=== PATIENT | female | born 1945 | race Caucasian/White ===

== ENCOUNTER 2017-10-20 10:58 | Inpatient (IN) | payer MEDICAID, MEDICARE ==
[2017-10-20 11:56] LABS: Hematocrit 40.3 % (37.0-47.0); Mean Cell Volume 106.1 fl (78-100); Mean Corpuscular Hemoglobin 34.2 pg (27-31); Mean Corpuscular Hgb Conc 32.3 g/dl (32-36); Mean Platelet Volume 9.9 fl (8-12.5); Platelet Count 224 K/mm3 (150-450); Red Cell Distribution Width 12.7 % (11.5-14.0); White Blood Count 17.5 K/mm3 (4.0-10.5)
[2017-10-20 11:58] LABS: Total Cells Counted 100
[2017-10-20 12:07] LABS: Urine Bilirubin Negative (NEGATIVE); Urine Ketone Negative (NEGATIVE); Urine Nitrite Negative (NEGATIVE); Urine Protein 30 mg/dL (NEGATIVE); Urine Specific Gravity 1.025 SP.GR. (1.005-1.010)
[2017-10-20 12:15] LABS: Urine Blood 10 /ul (NEGATIVE)
[2017-10-20 12:21] LABS: Urine Appearance Cloudy (CLEAR); Urine Bacteria 2+; Urine Color Dark Yellow
[2017-10-20 12:25] LABS: Anion Gap 14.6 mmol/L (6.8-13.8); BUN/Creatinine Ratio 21.2 (9.0-21.6); Bilirubin, Total 0.5 mg/dL (0.0-1.1); Ca. Corrected For Albumin 10.5 mg/dL (8.4-10.2); Calcium * 9.9 mg/dL (7.9-10.9); Carbon Dioxide 24.5 mmol/L (24-32.6); Potassium 4.1 mmol/L (3.4-4.6); Total Protein 9.3 gm/dL (6.2-8.2)
[2017-10-20 12:40] LABS: Albumin * 3.1 gm/dl (3.4-5.0)
[2017-10-20 12:41] LABS: Band 1 % (0-2.0); Eosinophil 1 % (0-3); Immature Granulocyte 3 (0-1); Lymphocyte 38 % (20-51); Monocyte 5 % (0-9); Neutrophil 52 % (42-75); Neutrophil # 9.1 K/mm3 (1.3-6.0)
[2017-10-20 12:43] LABS: CRP 16.4 mg/dL (0.0-0.9)
[2017-10-20] MEDS ORDERED: PIPERACILLIN SODIUM/TAZOBACTAM 3.375 GM in DEXTROSE 5 % IN WATER 100 ML IV ONE ×2 (12:51)
[2017-10-20] MEDS ORDERED: NORMAL SALINE 1,000 ML IV ONE ×2 (13:36→14:50)
--- NOTE | 2017-10-20 14:26 | ERNOTE ---
Neuro HPI ER Record Date of Service: 10/20/17 Presenting Symptoms: confusion, other - alterred mental status Time Seen by Provider: 10/20/17 11:15 Source: EMS notes reviewed, group home records Exam Limitations: clinical condition, physical impairment, dementia Immunizations: IMMUNIZATION HX Immunizations Up to Date Yes History of Influenza Vaccine Yes Hx Pneumococcal Vaccination Yes Allergies/Adverse Reactions: Allergies Allergy/AdvReac Type Severity Reaction Status Date / Time azithromycin Allergy Intermediate Verified 01/08/16 12:34 baclofen Allergy Intermediate Verified 01/08/16 12:34 ciprofloxacin [From Cipro] Allergy Intermediate Verified 01/08/16 12:34 ciprofloxacin HCl Allergy Intermediate Verified 01/08/16 12:34 [From Cipro] clindamycin Allergy Intermediate Verified 01/08/16 12:34 phenobarbital Allergy Intermediate Verified 01/08/16 12:34 Sulfa (Sulfonamide Allergy Intermediate Verified 01/08/16 12:34 Antibiotics) [Sulfa(Sulfonamide Antibiotics)] tizanidine [Tizanidine] Allergy Intermediate Verified 01/08/16 12:34 verapamil [Verapamil] Allergy Intermediate Verified 01/08/16 12:34 cephalexin monohydrate Allergy Verified 01/08/16 12:34 [From Keflex] levofloxacin [From Levaquin] Allergy Verified 01/08/16 12:34 mesalamine [From Pentasa] Allergy Verified 01/08/16 12:34 Neuromuscular Blockers, Allergy Verified 01/08/16 12:34 Steroidal Home Medications: HOME MEDICATIONS Calcium Carbonate [Tums] 500 mg PO TID 09/13/14 [Last Taken 12/28/15] Cholecalciferol (Vitamin D3) [Vitamin D3] 5,000 unit PO DAILY 09/13/14 [Last Taken 12/27/15] Cyanocobalamin (Vitamin B-12) [B-12] 1,000 mcg PO DAILY 09/13/14 [Last Taken 12/03] Multivitamin [Multi-Vitamin Daily] 1 each PO DAILY 09/13/14 [Last Taken 12/27/15 ] Simvastatin [Zocor] 40 mg PO HS 09/13/14 [Last Taken 12/27/15] Thiamine HCl [B-1] 100 mg PO DAILY 09/13/14 [Last Taken 12/27/15] Polyethylene Glycol 3350 [Miralax] 17 gm PO DAILY btl 09/20/14 [Last Taken 12/03] Pantoprazole Sodium [Protonix] 40 mg PO DAILY 12/04/14 [Last Taken 12/27/15] Lisinopril [Zestril] 20 mg PO DAILY #30 tablet 05/17/15 [Last Taken 12/27/15] 0.9 % Sodium Chloride [Nasal Mist] 2 spray NS QID 08/17/15 [Last Taken 12/28/15] Cetirizine HCl [Wal-Zyr] 10 mg PO Q12H 08/17/15 [Last Taken 12/27/15] Furosemide [Lasix] 40 mg PO MOWEFR 08/17/15 [Last Taken 12/26/15] Propranolol HCl [Inderal] 20 mg PO Q8H 08/17/15 [Last Taken 12/27/15] Topiramate [Topamax] 100 mg PO BID 08/17/15 [Last Taken 12/27/15] Lancets [Fingerstix] 1 each [facility] #1 each 08/22/15 [Last Taken 12/28/15] Blood Sugar Diagnostic [Test Strips] 1 each [facility] 12/28/15 [Last Taken ] Cranberry Fruit Concentrate [Cranberry] 450 mg PO DAILY 12/28/15 [Last Taken 12/03] Cyclosporine [Restasis] 1 each EACHEYE BID 12/28/15 [Last Taken 12/27/15] Divalproex Sodium [Depakote] 1,500 mg PO HS 12/28/15 [Last Taken 12/27/15] Insulin Aspart [Novolog] See Protocol [facility] 12/28/15 [Last Taken 12/27/15] Levothyroxine Sodium [Synthroid] 300 mcg PO DAILY 12/28/15 [Last Taken 12/27/15] Magnesium Hydroxide [Milk Of Magnesia] 30 ml PO DAILY PRN 12/28/15 [Last Taken Unknown] Aspirin [Marcelo Chewable Aspirin] 81 mg PO DAILY 04/10/17 [Last Taken Unknown] Gabapentin 300 mg PO TID 04/10/17 [Last Taken Unknown] Fluticasone Propionate [Flonase] 2 spray NS BID PRN 04/14/17 [Last Taken Unknown ] traMADol HCL [Tramadol HCl] 50 mg PO Q8H PRN 04/14/17 [Last Taken Unknown] Acetaminophen 650 mg PO QID PRN 10/08/17 [Last Taken Unknown] Insulin Detemir [Levemir] 120 unit SQ BID 10/08/17 [Last Taken Unknown] Docusate Sodium [Stool Softener] 100 mg PO HS 10/20/17 [Last Taken Unknown] Lurasidone HCl [Latuda] 60 mg PO BID 10/20/17 [Last Taken Unknown] - History of Present Illness Narrative: nusing home patient with known hx of bipolar, urosepsis presents to ed with c/ o of alterred mental status Onset: cannot confirm onset Severity: moderate Context: other - no reported injury - Character of Deficits New weakness: Present: general (diffuse) Additional Deficits: Present: impaired speech, bed-ridden Baseline Cognition: Present: alert but disoriented to time Baseline Gait: Present: walks only w/ assistance Associated Symptoms: Reports: fever/chills, altered mental status, disoriented, confused Prior Treament: Reports: recently seen, treated by physician Review of Systems - Narrative Narrative: previous episodes of urosepsis - Review of Systems Constitutional: Present: See HPI, fever, weakness, fatigue, malaise EYE: Present: no symptoms reported ENT: Present: no symptoms reported Respiratory: Present: no symptoms reported Cardiology: Present: no symptoms reported Gastrointestinal/Abdominal: Present: no symptoms reported Genitourinary: Present: no symptoms reported Musculoskeletal: Present: no symptoms reported Skin: Present: no symptoms reported Neurological: Present: weakness Endocrine: Present: no symptoms reported Hematologic/Lymphatic: Present: no symptoms reported Psych: Present: no symptoms reported Medical History (Last Updated 10/20/17 @ 11:18 by Jose Rico RN) Bipolar 1 disorder COPD (chronic obstructive pulmonary disease) Chronic pain Crohns disease Diabetes mellitus Diabetic neuropathy Edema GERD (gastroesophageal reflux disease) Hyperlipidemia Hypertension Hypothyroidism Major depressive disorder Migraine Muscle weakness Palmar fascial fibromatosis [dupuytren] Unspecified dementia with behavioral disturbance Urinary tract infection Social History: Preferred Language Italian Smoking Status Never smoker Have you smoked in the past 12 No months Abuse History No History of abuse Psych History Hx of Bipolar Disorder,Currently on Meds Alcohol Use none Drug Use none Physical Exam - Physical Exam General Appearance: Present: lethargic Head Exam: Present: normal inspection, no evidence of injury Eye Exam: Normal inspection: bilateral, PERRL: bilateral, EOMI: bilateral Ears, Nose, Throat: Present: normal ENT inspection, normal pharynx Neck: Present: normal inspection, nontender Respiratory: Present: no respiratory distress, normal breath sounds, no accessory muscle use, chest nontender, lungs clear Cardiovascular/Chest: Present: regular rate, rhythm, no murmur, normal peripheral pulses Gastrointestinal/Abdominal: Present: normal bowel sounds, nontender, nondistended, soft, no organomegaly Back Exam: Present: normal inspection, normal range of motion, no CVA tenderness , no vertebral tenderness Extremity Exam: Present: normal inspection, non-tender, normal range of motion, no edema Neurological Exam: Present: alert, oriented, normal mood/affect, no motor/ sensory deficits Skin Exam: Present: normal color, warm/dry Lymphatic Exam: Present: no adenopathy Sydni Coma Scale - Assess Eye Opening: To Pain Motor: Localizes to Pain Verbal: Confused - Total Coma Scale Total: 11 ED Progress - Date and Time Seen: Date and Time: 10/20/17 14:25 condition unchanged - Results and Orders Patient's Lab Results:: I have reviewed the patient's lab results. - Vital Signs Patient's Vital Signs:: I have reviewed the patient's vital signs. Vital Signs: Vital Signs 10/20/17 11:00 10/20/17 11:06 10/20/17 11:35 Temperature 36 C 36 C Pulse Rate 85 85 79 Respiratory Rate 20 20 Blood Pressure 140/37 151/46 H O2 Sat by Pulse Oximetry 95 95 10/20/17 11:48 10/20/17 12:05 10/20/17 12:35 Temperature 36 C 36 C Pulse Rate 79 79 79 Respiratory Rate 20 20 Blood Pressure 162/53 H 164/52 H O2 Sat by Pulse Oximetry 95 95 10/20/17 13:05 10/20/17 13:35 10/20/17 14:05 Temperature 36 C 36 C Pulse Rate 79 79 79 Respiratory Rate 20 20 22 H Blood Pressure 164/52 H 166/50 H 156/56 H O2 Sat by Pulse Oximetry 95 95 95 - EKG EKG: NSR EKG read: Interp. by me - X-Ray X-Ray #1 X-Ray: chest - no acute process - Progress/Reassessment Chief Complaint: Altered Mental Status Progress:: Unchanged - Transfer of Care Expected Disposition: Admit Plan - Plan Plan: to be admitted Departure Clinical Impression: Urinary tract infection - Departure Disposition: Still a patient Condition: Serious
[2017-10-20] MEDS: NORMAL SALINE 1,000 ML IV PRN ×2 (15:57→23:53)
--- NOTE | 2017-10-20 17:07 | HP ---
Chief Complaint - Chief Complaint Date of Service: 10/20/17 Time of Service: 16:57 Chief Complaint: altered mental status History of Present Illness: Meka Vee, is a 72-year-old white female, patient of Dr. Noriega, resident of the [facility], with previous medical history of bipolar disorder, COPD, hypertension, hypothyroidism, dementia who was brought to the emergency room on 10/20/2017 because of altered mental status. Due to the patient's current altered mental status and history of dementia, I am not able to get any history from the patient. The history is based on the emergency room notes which basically says that he was transferred here for altered mental status and her work up showed she has elevated WBC, Lactic acid and UTI on her urinalysis. Her CTS of the head did not show any acute intracranial process and CXR showed no acute cardiopulmonary findings. She was then admitted for further treatment. Medical History (Last Reviewed 10/20/17 @ 16:02 by Crystal Salgado RN) Urinary tract infection Bipolar 1 disorder COPD (chronic obstructive pulmonary disease) Chronic pain Crohns disease Diabetes mellitus Diabetic neuropathy Edema GERD (gastroesophageal reflux disease) Hyperlipidemia Hypertension Hypothyroidism Major depressive disorder Migraine Muscle weakness Palmar fascial fibromatosis [dupuytren] Unspecified dementia with behavioral disturbance Family History: Family History (Last Updated 10/20/17 @ 16:04 by Crystal Salgado RN) Mother No pertinent family history Social History: Patient Lives/Resources [facility] Utilized Occupation retired Preferred Language Syriac Smoking Status Unknown if ever smoked Have you smoked in the past 12 No months Abuse History No History of abuse Psych History Hx of Bipolar Disorder,Currently on Meds Alcohol Use none Drug Use none Review Of Systems (GEN) - Review of Systems Misc: All systems neg except as marked - Her ROS is unreliable due to her mental status and dementia. She answers No to all my querries. Immunizations: IMMUNIZATION HX Immunizations Up to Date Yes History of Influenza Vaccine Yes Hx Pneumococcal Vaccination Yes Allergies/Adverse Reactions: Allergies Allergy/AdvReac Type Severity Reaction Status Date / Time azithromycin Allergy Intermediate Verified 10/20/17 16:05 baclofen Allergy Intermediate Verified 10/20/17 16:05 ciprofloxacin [From Cipro] Allergy Intermediate Verified 10/20/17 16:05 ciprofloxacin HCl Allergy Intermediate Verified 10/20/17 16:05 [From Cipro] clindamycin Allergy Intermediate Verified 10/20/17 16:05 phenobarbital Allergy Intermediate Verified 10/20/17 16:05 Sulfa (Sulfonamide Allergy Intermediate Verified 10/20/17 16:05 Antibiotics) [Sulfa(Sulfonamide Antibiotics)] tizanidine [Tizanidine] Allergy Intermediate Verified 10/20/17 16:05 verapamil [Verapamil] Allergy Intermediate Verified 10/20/17 16:05 cephalexin monohydrate Allergy Verified 10/20/17 16:05 [From Keflex] levofloxacin [From Levaquin] Allergy Verified 10/20/17 16:05 mesalamine [From Pentasa] Allergy Verified 10/20/17 16:05 Neuromuscular Blockers, Allergy Verified 10/20/17 16:05 Steroidal Home Medications: HOME MEDICATIONS Calcium Carbonate [Tums] 500 mg PO TID 09/13/14 [Last Taken 12/28/15] Cholecalciferol (Vitamin D3) [Vitamin D3] 5,000 unit PO DAILY 09/13/14 [Last Taken 12/27/15] Cyanocobalamin (Vitamin B-12) [B-12] 1,000 mcg PO DAILY 09/13/14 [Last Taken 12/03] Multivitamin [Multi-Vitamin Daily] 1 each PO DAILY 09/13/14 [Last Taken 12/27/15 ] Simvastatin [Zocor] 40 mg PO HS 09/13/14 [Last Taken 12/27/15] Thiamine HCl [B-1] 100 mg PO DAILY 09/13/14 [Last Taken 12/27/15] Polyethylene Glycol 3350 [Miralax] 17 gm PO DAILY btl 09/20/14 [Last Taken 12/03] Pantoprazole Sodium [Protonix] 40 mg PO DAILY 12/04/14 [Last Taken 12/27/15] Lisinopril [Zestril] 20 mg PO DAILY #30 tablet 05/17/15 [Last Taken 12/27/15] 0.9 % Sodium Chloride [Nasal Mist] 2 spray NS QID 08/17/15 [Last Taken 12/28/15] Cetirizine HCl [Wal-Zyr] 10 mg PO Q12H 08/17/15 [Last Taken 12/27/15] Furosemide [Lasix] 40 mg PO MOWEFR 08/17/15 [Last Taken 12/26/15] Propranolol HCl [Inderal] 20 mg PO Q8H 08/17/15 [Last Taken 12/27/15] Topiramate [Topamax] 100 mg PO BID 08/17/15 [Last Taken 12/27/15] Lancets [Fingerstix] 1 each [facility] #1 each 08/22/15 [Last Taken 12/28/15] Blood Sugar Diagnostic [Test Strips] 1 each [facility] 12/28/15 [Last Taken ] Cranberry Fruit Concentrate [Cranberry] 450 mg PO DAILY 12/28/15 [Last Taken 12/03] Cyclosporine [Restasis] 1 each EACHEYE BID 12/28/15 [Last Taken 12/27/15] Divalproex Sodium [Depakote] 1,500 mg PO HS 12/28/15 [Last Taken 12/27/15] Insulin Aspart [Novolog] See Protocol [facility] 12/28/15 [Last Taken 12/27/15] Levothyroxine Sodium [Synthroid] 300 mcg PO DAILY 12/28/15 [Last Taken 12/27/15] Magnesium Hydroxide [Milk Of Magnesia] 30 ml PO DAILY PRN 12/28/15 [Last Taken Unknown] Aspirin [Marcelo Chewable Aspirin] 81 mg PO DAILY 04/10/17 [Last Taken Unknown] Gabapentin 300 mg PO TID 04/10/17 [Last Taken Unknown] Fluticasone Propionate [Flonase] 2 spray NS BID PRN 04/14/17 [Last Taken Unknown ] traMADol HCL [Tramadol HCl] 50 mg PO Q8H PRN 04/14/17 [Last Taken Unknown] Acetaminophen 650 mg PO QID PRN 10/08/17 [Last Taken Unknown] Insulin Detemir [Levemir] 120 unit SQ BID 10/08/17 [Last Taken Unknown] Diclofenac Sodium [Voltaren] 100 gm TP TID 10/20/17 [Last Taken Unknown] Docusate Sodium [Stool Softener] 100 mg PO HS 10/20/17 [Last Taken Unknown] Glycerin/[place] [Tucks Medicated Pads] 1 appl TP TID PRN 10/20/17 [ Last Taken Unknown] Lurasidone HCl [Latuda] 60 mg PO BID 10/20/17 [Last Taken Unknown] Nystatin [Mycostatin Powder] 15 gm TP TID PRN 10/20/17 [Last Taken Unknown] Exam - Exam Vital Signs: Vital Signs - Last Taken Temp 36.6 C 10/20/17 16:24 Pulse 66 10/20/17 16:24 Resp 20 10/20/17 16:24 BP 121/51 10/20/17 16:24 Pulse Ox 94 10/20/17 16:24 Constitutional: Present: Alert - AAo x 1, Lethargic, Morbidly obese ENT Exam: Present: hearing grossly normal Eye Exam: bilateral eye: normal inspection, PERRL, EOMI Neck: Present: supple Respiratory: Present: decreased breath sounds, No rales, No wheezing Cardiovascular/Chest: Present: regular rate, rhythm, no JVD, no murmur Abdomen: Present: Normal bowel sounds, soft, nontender, nondistended Extremity: Present: no calf tenderness, pedal edema Diagnostic Studies: Abnormal Lab Results 10/20/17 10/20/17 10/20/17 Range/Units 11:21 11:45 11:45 WBC 17.5 H D (4.0-10.5) K/mm3 RBC 3.80 L (4.2-5.4) M/mm3 MCV 106.1 H (78-100) fl MCH 34.2 H (27-31) pg Immature Granulocytes 3 H (0-1) Neutrophils # (Manual) 9.1 H (1.3-6.0) K/mm3 Lymphocytes # (Manual) 6.7 H (1.5-3.5) k/mm3 pO2 (83.0-108.0) mmHg Base Excess (-2.0-3.0) mmol/L Anion Gap 14.6 H (6.8-13.8) mmol/L BUN 31 H (3-23) mg/dL Creatinine 1.46 H (0.4-1.4) mg/dL Est GFR (Non-Af Amer) 38 L (60-130) mL/min Random Glucose 149 H D (70-110) mg/dL Lactic Acid, Venous (0.4-2.0) mmol/L Calcium Adj for Albumin 10.5 H (8.4-10.2) mg/dL C-Reactive Prot, Quant 16.4 H (0.0-0.9) mg/dL Total Protein 9.3 H (6.2-8.2) gm/dL Albumin 3.1 L (3.4-5.0) gm/dl Urine Protein 30 H (NEGATIVE) mg/dL Urine Blood 10 H (NEGATIVE) /ul Urine Urobilinogen 2.0 H (NORMAL) EU/dl Ur Leukocyte Esterase 75 H (NEGATIVE) /ul Urine RBC 5-10 H (0-5) /hpf Urine WBC 10-25 H (0-5) /hpf Urine Bacteria 2+ H (NONE) 10/20/17 10/20/17 10/20/17 Range/Units 11:45 12:35 14:36 WBC (4.0-10.5) K/mm3 RBC (4.2-5.4) M/mm3 MCV (78-100) fl MCH (27-31) pg Immature Granulocytes (0-1) Neutrophils # (Manual) (1.3-6.0) K/mm3 Lymphocytes # (Manual) (1.5-3.5) k/mm3 pO2 69.7 L (83.0-108.0) mmHg Base Excess -2.9 L (-2.0-3.0) mmol/L Anion Gap (6.8-13.8) mmol/L BUN (3-23) mg/dL Creatinine (0.4-1.4) mg/dL Est GFR (Non-Af Amer) (60-130) mL/min Random Glucose (70-110) mg/dL Lactic Acid, Venous 2.8 H* 3.4 H* (0.4-2.0) mmol/L Calcium Adj for Albumin (8.4-10.2) mg/dL C-Reactive Prot, Quant (0.0-0.9) mg/dL Total Protein (6.2-8.2) gm/dL Albumin (3.4-5.0) gm/dl Urine Protein (NEGATIVE) mg/dL Urine Blood (NEGATIVE) /ul Urine Urobilinogen (NORMAL) EU/dl Ur Leukocyte Esterase (NEGATIVE) /ul Urine RBC (0-5) /hpf Urine WBC (0-5) /hpf Urine Bacteria (NONE) Laboratory Results WBC 17.5 K/mm3 (4.0-10.5) H D 10/20/17 11:45 RBC 3.80 M/mm3 (4.2-5.4) L 10/20/17 11:45 Hgb 13.0 gm/dL (12.5-16.0) 10/20/17 11:45 Hct 40.3 % (37.0-47.0) 10/20/17 11:45 MCV 106.1 fl (78-100) H 10/20/17 11:45 MCH 34.2 pg (27-31) H 10/20/17 11:45 MCHC 32.3 g/dl (32-36) 10/20/17 11:45 RDW 12.7 % (11.5-14.0) 10/20/17 11:45 Plt Count 224 K/mm3 (150-450) 10/20/17 11:45 MPV 9.9 fl (8-12.5) 10/20/17 11:45 Neutrophils % (Manual) 52 % (42-75) 10/20/17 11:45 Band Neuts % (Manual) 1 % (0-2.0) 10/20/17 11:45 Lymphocytes % (Manual) 38 % (20-51) 10/20/17 11:45 Monocytes % (Manual) 5 % (0-9) 10/20/17 11:45 Eosinophils % (Manual) 1 % (0-3) 10/20/17 11:45 Immature Granulocytes 3 (0-1) H 10/20/17 11:45 Neutrophils # (Manual) 9.1 K/mm3 (1.3-6.0) H 10/20/17 11:45 Lymphocytes # (Manual) 6.7 k/mm3 (1.5-3.5) H 10/20/17 11:45 Monocytes # (Manual) 0.9 k/mm3 (0.0-1.0) 10/20/17 11:45 Eosinophils # (Manual) 0.2 k/mm3 (0.0-0.7) 10/20/17 11:45 pCO2 34.7 mmHg (32.0-45.0) 10/20/17 12:35 pO2 69.7 mmHg (83.0-108.0) L 10/20/17 12:35 HCO3 21.2 mmol/L (21.0-28.0) 10/20/17 12:35 Total CO2 22.3 mmol/L (19.0-24.0) 10/20/17 12:35 Base Excess -2.9 mmol/L (-2.0-3.0) L 10/20/17 12:35 ABG pH 7.40 (7.35-7.45) 10/20/17 12:35 ABG O2 Sat (Measured) 94.2 % (94.0-98.0) 10/20/17 12:35 Sodium 135 mmol/L (132-142) 10/20/17 11:45 Plasma Sodium 136 mmol/L (130-142) 10/20/17 11:45 Potassium 4.1 mmol/L (3.4-4.6) 10/20/17 11:45 Chloride 100 mmol/L (97-106) 10/20/17 11:45 Carbon Dioxide 24.5 mmol/L (24-32.6) 10/20/17 11:45 Anion Gap 14.6 mmol/L (6.8-13.8) H 10/20/17 11:45 BUN 31 mg/dL (3-23) H 10/20/17 11:45 Creatinine 1.46 mg/dL (0.4-1.4) H 10/20/17 11:45 Est GFR (Non-Af Amer) 38 mL/min (60-130) L 10/20/17 11:45 BUN/Creatinine Ratio 21.2 (9.0-21.6) 10/20/17 11:45 Random Glucose 149 mg/dL (70-110) H D 10/20/17 11:45 Lactic Acid, Venous 3.4 mmol/L (0.4-2.0) H* 10/20/17 14:36 Calcium 9.9 mg/dL (7.9-10.9) 10/20/17 11:45 Calcium Adj for Albumin 10.5 mg/dL (8.4-10.2) H 10/20/17 11:45 Total Bilirubin 0.5 mg/dL (0.0-1.1) 10/20/17 11:45 AST 38 U/L (0-48) 10/20/17 11:45 ALT 35 U/L (19-67) 10/20/17 11:45 Alkaline Phosphatase 138 U/L (50-170) 10/20/17 11:45 C-Reactive Prot, Quant 16.4 mg/dL (0.0-0.9) H 10/20/17 11:45 Total Protein 9.3 gm/dL (6.2-8.2) H 10/20/17 11:45 Albumin 3.1 gm/dl (3.4-5.0) L 10/20/17 11:45 Procalcitonin 0.10 ng/mL (0.05-0.50) 10/20/17 11:45 Urine Color Dark yellow 10/20/17 11:21 Urine Appearance Cloudy (CLEAR) 10/20/17 11:21 Urine pH 6.0 pH (5.0-7.0) 10/20/17 11:21 Ur Specific [place] 1.025 SP.GR. (1.005-1.010) 10/20/17 11:21 Urine Protein 30 mg/dL (NEGATIVE) H 10/20/17 11:21 Urine Glucose (UA) Negative mg/dL (NEGATIVE) 10/20/17 11:21 Urine Ketones Negative mg/dL (NEGATIVE) 10/20/17 11:21 Urine Blood 10 /ul (NEGATIVE) H 10/20/17 11:21 Urine Nitrate Negative (NEGATIVE) 10/20/17 11:21 Urine Bilirubin Negative mg/dl (NEGATIVE) 10/20/17 11:21 Prot Sulfosalicylic Acd 1+ mg/dL (0) 10/20/17 11:21 Urine Urobilinogen 2.0 EU/dl (NORMAL) H 10/20/17 11:21 Ur Leukocyte Esterase 75 /ul (NEGATIVE) H 10/20/17 11:21 Urine RBC 5-10 /hpf (0-5) H 10/20/17 11:21 Urine WBC 10-25 /hpf (0-5) H 10/20/17 11:21 Ur Epithelial Cells 0-5 /hpf (0-5) 10/20/17 11:21 Urine Bacteria 2+ (NONE) H 10/20/17 11:21 Urine Culture Comments Culture to follow 10/20/17 11:21 Assessment/Plan - Assessment/Plan (1) Altered mental status Assessment: due to sepsis. Problem: Acute (2) Leucocytosis Assessment: due to UTI. Continue with IV antibiotics Problem: Acute Qualifiers: Leukocytosis type: unspecified Qualified Code(s): D72.829 - Elevated white blood cell count, unspecified (3) Lactic acidosis Assessment: likely due to sepsis. will continue with IVF and IV antibiotics Problem: Acute (4) Urinary tract infection Assessment: will continue with IV antibiotics and await C & S. 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
[2017-10-20] MEDS: PIPERACILLIN SODIUM/TAZOBACTAM 3.375 GM in DEXTROSE 5 % IN WATER 100 ML IV SCH ×2 (19:46)
[2017-10-20] MEDS ORDERED: DEXTROSE 50%-WATER 50 ML SYRG IV ONE (20:48)
[2017-10-20] MEDS ORDERED: FLUTICASONE PROPIONATE 120 SPRAY INHALER NS PRN (22:10)
[2017-10-20] MEDS: PROPRANOLOL HCL 20 MG TABLET PO SCH (23:06)
[2017-10-20] MEDS: traMADol HCL 50 MG TABLET PO PRN (23:08)
[2017-10-21] MEDS: ACETAMINOPHEN 325 MG TABLET PO PRN ×2 (01:24→10:29)
[2017-10-21] MEDS: PIPERACILLIN SODIUM/TAZOBACTAM 3.375 GM in DEXTROSE 5 % IN WATER 100 ML IV SCH ×6 (03:38→19:40)
[2017-10-21 04:33] LABS: Hematocrit 32.4 % (37.0-47.0); Hemoglobin 10.5 gm/dL (12.5-16.0); Mean Cell Volume 104.2 fl (78-100); Mean Corpuscular Hemoglobin 33.8 pg (27-31); Mean Corpuscular Hgb Conc 32.4 g/dl (32-36); Mean Platelet Volume 9.6 fl (8-12.5); Platelet Count 162 K/mm3 (150-450); Red Blood Count 3.11 M/mm3 (4.2-5.4); Red Cell Distribution Width 12.6 % (11.5-14.0); White Blood Count 10.7 K/mm3 (4.0-10.5)
[2017-10-21 04:37] LABS: Total Cells Counted 100
[2017-10-21 04:53] LABS: Band 2 % (0-2.0); Eosinophil 2 % (0-3); Immature Granulocyte 1 (0-1); Lymphocyte 36 % (20-51); Monocyte 8 % (0-9); Neutrophil 51 % (42-75); Neutrophil # 5.5 K/mm3 (1.3-6.0); Platelet Estimate Normal (NORMAL); RBC Morphology Normal (NORMAL)
[2017-10-21 04:54] LABS: Anion Gap 12.9 mmol/L (6.8-13.8); Bilirubin, Total 0.4 mg/dL (0.0-1.1); Ca. Corrected For Albumin 9.7 mg/dL (8.4-10.2); Calcium * 8.4 mg/dL (7.9-10.9); Carbon Dioxide 23.9 mmol/L (24-32.6); Potassium 3.8 mmol/L (3.4-4.6); Total Protein 6.8 gm/dL (6.2-8.2)
--- NOTE | 2017-10-21 04:55 | PN ---
Subjective - Date and Time Seen Date: 10/21/17 Time: 04:49 Subjective Narrative: patient seen this morning stated she was feeling much better. She is coherent to time place and self. pt stated she think she was admitted for pneumonia and would like to speak with her daughter in [place].She denies fever, chills,nausea or dysuria. Objective - Review of Systems Generalized/Overall Review: Reports: Weakness EENTM: Reports: No Symptoms Reported Respiratory: Reports: Cough Cardiac: Reports: No Symptoms Reported Abdominal: Reports: No Symptoms Reported Genitourinary Symptoms: Reports: No Symptoms Reported Musculoskeletal Complaints: Reports: No Symptoms Reported Neurological: Reports: No Symptoms Reported Skin: Reports: Dryness Endocrine: Reports: No Symptoms Reported - Vitals Vitals: Last Vital Signs Temp 36.9 C 10/20/17 23:15 Pulse 76 10/21/17 02:00 Resp 22 H 10/20/17 23:15 BP 123/51 10/21/17 00:06 Pulse Ox 90 L 10/21/17 00:06 - Abnormal Lab Findings Abnormal Lab Findings: Abnormal Lab Results 10/20/17 10/20/17 10/20/17 Range/Units 11:21 11:45 11:45 WBC 17.5 H D (4.0-10.5) K/mm3 RBC 3.80 L (4.2-5.4) M/mm3 Hgb (12.5-16.0) gm/dL Hct (37.0-47.0) % MCV 106.1 H (78-100) fl MCH 34.2 H (27-31) pg Immature Granulocytes 3 H (0-1) Neutrophils # (Manual) 9.1 H (1.3-6.0) K/mm3 Lymphocytes # (Manual) 6.7 H (1.5-3.5) k/mm3 pO2 (83.0-108.0) mmHg Base Excess (-2.0-3.0) mmol/L Anion Gap 14.6 H (6.8-13.8) mmol/L BUN 31 H (3-23) mg/dL Creatinine 1.46 H (0.4-1.4) mg/dL Est GFR (Non-Af Amer) 38 L (60-130) mL/min Random Glucose 149 H D (70-110) mg/dL Lactic Acid, Venous (0.4-2.0) mmol/L Calcium Adj for Albumin 10.5 H (8.4-10.2) mg/dL C-Reactive Prot, Quant 16.4 H (0.0-0.9) mg/dL Total Protein 9.3 H (6.2-8.2) gm/dL Albumin 3.1 L (3.4-5.0) gm/dl Urine Protein 30 H (NEGATIVE) mg/dL Urine Blood 10 H (NEGATIVE) /ul Urine Urobilinogen 2.0 H (NORMAL) EU/dl Ur Leukocyte Esterase 75 H (NEGATIVE) /ul Urine RBC 5-10 H (0-5) /hpf Urine WBC 10-25 H (0-5) /hpf Urine Bacteria 2+ H (NONE) 10/20/17 10/20/17 10/20/17 Range/Units 11:45 12:35 14:36 WBC (4.0-10.5) K/mm3 RBC (4.2-5.4) M/mm3 Hgb (12.5-16.0) gm/dL Hct (37.0-47.0) % MCV (78-100) fl MCH (27-31) pg Immature Granulocytes (0-1) Neutrophils # (Manual) (1.3-6.0) K/mm3 Lymphocytes # (Manual) (1.5-3.5) k/mm3 pO2 69.7 L (83.0-108.0) mmHg Base Excess -2.9 L (-2.0-3.0) mmol/L Anion Gap (6.8-13.8) mmol/L BUN (3-23) mg/dL Creatinine (0.4-1.4) mg/dL Est GFR (Non-Af Amer) (60-130) mL/min Random Glucose (70-110) mg/dL Lactic Acid, Venous 2.8 H* 3.4 H* (0.4-2.0) mmol/L Calcium Adj for Albumin (8.4-10.2) mg/dL C-Reactive Prot, Quant (0.0-0.9) mg/dL Total Protein (6.2-8.2) gm/dL Albumin (3.4-5.0) gm/dl Urine Protein (NEGATIVE) mg/dL Urine Blood (NEGATIVE) /ul Urine Urobilinogen (NORMAL) EU/dl Ur Leukocyte Esterase (NEGATIVE) /ul Urine RBC (0-5) /hpf Urine WBC (0-5) /hpf Urine Bacteria (NONE) 10/21/17 Range/Units 04:15 WBC 10.7 H D (4.0-10.5) K/mm3 RBC 3.11 L (4.2-5.4) M/mm3 Hgb 10.5 L (12.5-16.0) gm/dL Hct 32.4 L (37.0-47.0) % MCV 104.2 H (78-100) fl MCH 33.8 H (27-31) pg Immature Granulocytes (0-1) Neutrophils # (Manual) (1.3-6.0) K/mm3 Lymphocytes # (Manual) (1.5-3.5) k/mm3 pO2 (83.0-108.0) mmHg Base Excess (-2.0-3.0) mmol/L Anion Gap (6.8-13.8) mmol/L BUN (3-23) mg/dL Creatinine (0.4-1.4) mg/dL Est GFR (Non-Af Amer) (60-130) mL/min Random Glucose (70-110) mg/dL Lactic Acid, Venous (0.4-2.0) mmol/L Calcium Adj for Albumin (8.4-10.2) mg/dL C-Reactive Prot, Quant (0.0-0.9) mg/dL Total Protein (6.2-8.2) gm/dL Albumin (3.4-5.0) gm/dl Urine Protein (NEGATIVE) mg/dL Urine Blood (NEGATIVE) /ul Urine Urobilinogen (NORMAL) EU/dl Ur Leukocyte Esterase (NEGATIVE) /ul Urine RBC (0-5) /hpf Urine WBC (0-5) /hpf Urine Bacteria (NONE) - Exam Constitutional: Present: No distress, Elderly, Morbidly obese, Looks Older than stated age ENT Exam: Present: hearing grossly normal, moist mucous membranes Neck: Present: full range of motion Breasts: Present: Exam deferred Respiratory: Present: chest non-tender, no respiratory distress, no accessory muscle use, decreased breath sounds Cardiovascular/Chest: Present: normal peripheral pulses, no gallop, no JVD, no murmur Abdomen: Present: Normal bowel sounds, soft, nontender, nondistended, no rebound tenderness /Rectal: Present: Exam deferred Extremity: Present: no calf tenderness, normal capillary refill Neurologic: Present: alert, normal mood/affect, motor weakness, sensory deficit Appearance: Present: impaired insight, impaired recent memory, impaired remote memory Eye contact: Present: cooperative, good eye contact, refused to answer Assessment/Plan Plan Narrative: urosepsis Pt is more coherent today and tolerating IVF and antibiotic well. Her WBC 10.7 trending down since adm, Bun/Cre 25/1.25 gradually improved with IVF, will continue to monitor. Slightly anemia likely due to hemodilution, hemo-dynamically stable- will continue to monitor. Hypoglycemia: overnight Blood glucose was 78 she was symptomatic. Had dextrose and food. Blood glucose gradually improved and pt wake up She was on Levemir 120units BID while at home, dose was held over night, will continue with sliding scale. - Problems/Diagnosis (1) Chronic pain Problem: Chronic Qualifiers: Chronic pain type: chronic pain syndrome Qualified Code(s): G89.4 - Chronic pain syndrome (2) Sepsis Problem: Acute Qualifiers: Sepsis type: sepsis due to unspecified organism Qualified Code(s): A41.9 - Sepsis, unspecified organism (3) Morbid obesity Problem: Chronic (4) Crohns disease Problem: Chronic Qualifiers: Gastrointestinal tract location: unspecified location Digestive disease complication type: without complication Qualified Code(s): K50.90 - Crohn's disease, unspecified, without complications (5) Dementia Problem: Chronic Qualifiers: Dementia type: Alzheimer's disease (6) COPD (chronic obstructive pulmonary disease) Problem: Chronic (7) DVT (deep venous thrombosis) Problem: Chronic Qualifiers: DVT location: lower extremity (8) Type 2 diabetes mellitus Problem: Chronic Qualifiers: Diabetes mellitus halfway insulin use: with halfway use Chronic kidney disease stage: stage 3 (moderate) (9) Weakness Problem: Chronic (10) Hypertension Problem: Chronic Qualifiers: Hypertension type: essential hypertension Qualified Code(s): I10 - Essential (primary) hypertension (11) Dry eye syndrome Problem: Chronic (12) Leucocytosis Problem: Acute Qualifiers: Leukocytosis type: unspecified Qualified Code(s): D72.829 - Elevated white blood cell count, unspecified (13) Lactic acidosis Problem: Acute (14) Altered mental status Problem: Acute (15) Hypoglycemia Problem: Acute
[2017-10-21] MEDS: PROPRANOLOL HCL 20 MG TABLET PO SCH ×3 (07:11→22:06)
[2017-10-21] MEDS: traMADol HCL 50 MG TABLET PO PRN (07:12)
[2017-10-21] MEDS: LEVOTHYROXINE SODIUM 100 MCG TABLET PO SCH (07:12)
[2017-10-21] MEDS: NORMAL SALINE 1,000 ML IV PRN ×2 (07:15→15:11)
[2017-10-21] MEDS: PANTOPRAZOLE SODIUM 40 MG TABLET.EC PO SCH (07:22)
[2017-10-21] MEDS ORDERED: FUROSEMIDE 40 MG TABLET PO SCH (09:00)
[2017-10-21] MEDS: ENOXAPARIN SODIUM 40 MG/0.4 ML SYRG SC SCH (09:19)
[2017-10-21] MEDS: ASPIRIN 81 MG TAB.CHEW PO SCH (09:20)
[2017-10-21] MEDS: LORATADINE 10 MG TABLET PO SCH ×2 (09:21→21:56)
[2017-10-21] MEDS: DICLOFENAC SODIUM 100 APPL TUBE TP SCH ×3 (09:21→16:01)
[2017-10-21] MEDS: Cyclosporine [Restasis] EACHEYE SCH ×2 (09:21→21:50)
[2017-10-21] MEDS: LURASIDONE HCL 80 MG TABLET PO SCH ×2 (09:22→22:05)
[2017-10-21] MEDS: SODIUM CHLORIDE 45 SPRAY BTL NS SCH ×4 (09:23→21:52)
[2017-10-21] MEDS: GABAPENTIN 300 MG CAPSULE PO SCH ×3 (09:23→16:02)
[2017-10-21] MEDS: MULTIVITAMINS 1 CAP CAPSULE PO SCH (09:23)
[2017-10-21] MEDS: TOPIRAMATE 50 MG TABLET PO SCH ×2 (09:23→22:06)
[2017-10-21] MEDS: THIAMINE HCL 100 MG TABLET PO SCH (09:24)
[2017-10-21] MEDS: LISINOPRIL 20 MG TABLET PO SCH (09:24)
[2017-10-21] MEDS: CHOLECALCIFEROL 5,000 UNIT TABLET PO SCH (09:24)
[2017-10-21] MEDS: NYSTATIN 15 APPL BTL TP PRN (16:01)
[2017-10-21] MEDS ORDERED: DOCUSATE SODIUM 100 MG CAPSULE PO SCH (21:00)
[2017-10-21] MEDS ORDERED: SIMVASTATIN 40 MG TABLET PO SCH (21:00)
[2017-10-21] MEDS ORDERED: DIVALPROEX SODIUM 500 MG TABLET.DR PO SCH (21:00)
[2017-10-21] MEDS ORDERED: DIVALPROEX SODIUM 500 MG TAB.SR.24H PO SCH (21:00)
[2017-10-22] MEDS: PIPERACILLIN SODIUM/TAZOBACTAM 3.375 GM in DEXTROSE 5 % IN WATER 100 ML IV SCH ×2 (03:42)
[2017-10-22] MEDS: NORMAL SALINE 1,000 ML IV PRN (04:28)
[2017-10-22] MEDS: PANTOPRAZOLE SODIUM 40 MG TABLET.EC PO SCH (07:22)
[2017-10-22] MEDS: LEVOTHYROXINE SODIUM 100 MCG TABLET PO SCH (07:22)
[2017-10-22] MEDS: PROPRANOLOL HCL 20 MG TABLET PO SCH (07:23)
[2017-10-22] MEDS: ASPIRIN 81 MG TAB.CHEW PO SCH (10:00)
[2017-10-22] MEDS: ENOXAPARIN SODIUM 40 MG/0.4 ML SYRG SC SCH (10:00)
[2017-10-22] MEDS: CHOLECALCIFEROL 5,000 UNIT TABLET PO SCH (10:01)
[2017-10-22] MEDS: LORATADINE 10 MG TABLET PO SCH (10:01)
[2017-10-22] MEDS: TOPIRAMATE 50 MG TABLET PO SCH (10:01)
[2017-10-22] MEDS: MULTIVITAMINS 1 CAP CAPSULE PO SCH (10:01)
[2017-10-22] MEDS: GABAPENTIN 300 MG CAPSULE PO SCH (10:02)
[2017-10-22] MEDS: Cyclosporine [Restasis] EACHEYE SCH (10:02)
[2017-10-22] MEDS: LURASIDONE HCL 80 MG TABLET PO SCH (10:02)
[2017-10-22] MEDS: NYSTATIN 15 APPL BTL TP PRN (10:03)
[2017-10-22] MEDS: DICLOFENAC SODIUM 100 APPL TUBE TP SCH (10:04)
[2017-10-22] MEDS: SODIUM CHLORIDE 45 SPRAY BTL NS SCH (10:04)
[2017-10-22] MEDS: THIAMINE HCL 100 MG TABLET PO SCH (10:12)
[2017-10-22] MEDS: LISINOPRIL 20 MG TABLET PO SCH (10:12)
--- NOTE | 2017-10-22 11:17 | DS ---
<Ramy Burris - Last Filed: 10/31/17 20:27> Description of Stay: ct head no acute process Results and Findings: Lab Pending Results 10/20/17 10/20/17 10/20/17 11:21 11:45 11:45 WBC 17.5 H D RBC 3.80 L Hgb 13.0 Hct 40.3 MCV 106.1 H MCH 34.2 H MCHC 32.3 RDW 12.7 Plt Count 224 MPV 9.9 Neutrophils % (Manual) 52 Band Neuts % (Manual) 1 Lymphocytes % (Manual) 38 Monocytes % (Manual) 5 Eosinophils % (Manual) 1 Immature Granulocytes 3 H Neutrophils # (Manual) 9.1 H Lymphocytes # (Manual) 6.7 H Monocytes # (Manual) 0.9 Eosinophils # (Manual) 0.2 Platelet Estimate RBC Morphology pCO2 pO2 HCO3 Total CO2 Base Excess ABG pH ABG O2 Sat (Measured) Sodium 135 Plasma Sodium 136 Potassium 4.1 Chloride 100 Carbon Dioxide 24.5 Anion Gap 14.6 H BUN 31 H Creatinine 1.46 H Est GFR (Non-Af Amer) 38 L BUN/Creatinine Ratio 21.2 Random Glucose 149 H D Lactic Acid, Venous Calcium 9.9 Calcium Adj for Albumin 10.5 H Total Bilirubin 0.5 AST 38 ALT 35 Alkaline Phosphatase 138 C-Reactive Prot, Quant 16.4 H Total Protein 9.3 H Albumin 3.1 L Procalcitonin Urine Color Dark yellow Urine Appearance Cloudy Urine pH 6.0 Ur Specific Oolitic 1.025 Urine Protein 30 H Urine Glucose (UA) Negative Urine Ketones Negative Urine Blood 10 H Urine Nitrate Negative Urine Bilirubin Negative Prot Sulfosalicylic Acd 1+ Urine Urobilinogen 2.0 H Ur Leukocyte Esterase 75 H Urine RBC 5-10 H Urine WBC 10-25 H Ur Epithelial Cells 0-5 Urine Bacteria 2+ H Urine Culture Comments Culture to follow 10/20/17 10/20/17 10/20/17 11:45 11:45 12:35 WBC RBC Hgb Hct MCV MCH MCHC RDW Plt Count MPV Neutrophils % (Manual) Band Neuts % (Manual) Lymphocytes % (Manual) Monocytes % (Manual) Eosinophils % (Manual) Immature Granulocytes Neutrophils # (Manual) Lymphocytes # (Manual) Monocytes # (Manual) Eosinophils # (Manual) Platelet Estimate RBC Morphology pCO2 34.7 pO2 69.7 L HCO3 21.2 Total CO2 22.3 Base Excess -2.9 L ABG pH 7.40 ABG O2 Sat (Measured) 94.2 Sodium Plasma Sodium Potassium Chloride Carbon Dioxide Anion Gap BUN Creatinine Est GFR (Non-Af Amer) BUN/Creatinine Ratio Random Glucose Lactic Acid, Venous 2.8 H* Calcium Calcium Adj for Albumin Total Bilirubin AST ALT Alkaline Phosphatase C-Reactive Prot, Quant Total Protein Albumin Procalcitonin 0.10 Urine Color Urine Appearance Urine pH Ur Specific Oolitic Urine Protein Urine Glucose (UA) Urine Ketones Urine Blood Urine Nitrate Urine Bilirubin Prot Sulfosalicylic Acd Urine Urobilinogen Ur Leukocyte Esterase Urine RBC Urine WBC Ur Epithelial Cells Urine Bacteria Urine Culture Comments 10/20/17 10/21/17 10/21/17 14:36 04:15 04:15 WBC 10.7 H D RBC 3.11 L Hgb 10.5 L Hct 32.4 L MCV 104.2 H MCH 33.8 H MCHC 32.4 RDW 12.6 Plt Count 162 MPV 9.6 Neutrophils % (Manual) 51 Band Neuts % (Manual) 2 Lymphocytes % (Manual) 36 Monocytes % (Manual) 8 Eosinophils % (Manual) 2 Immature Granulocytes 1 Neutrophils # (Manual) 5.5 Lymphocytes # (Manual) 3.9 H Monocytes # (Manual) 0.9 Eosinophils # (Manual) 0.2 Platelet Estimate Normal RBC Morphology Normal pCO2 pO2 HCO3 Total CO2 Base Excess ABG pH ABG O2 Sat (Measured) Sodium 136 Plasma Sodium 137 Potassium 3.8 Chloride 103 Carbon Dioxide 23.9 L Anion Gap 12.9 BUN 25 H Creatinine 1.25 Est GFR (Non-Af Amer) 45 L BUN/Creatinine Ratio 20.0 Random Glucose 142 H Lactic Acid, Venous 3.4 H* Calcium 8.4 Calcium Adj for Albumin 9.7 Total Bilirubin 0.4 AST 23 ALT 24 Alkaline Phosphatase 95 C-Reactive Prot, Quant Total Protein 6.8 Albumin 2.0 L Procalcitonin Urine Color Urine Appearance Urine pH Ur Specific Oolitic Urine Protein Urine Glucose (UA) Urine Ketones Urine Blood Urine Nitrate Urine Bilirubin Prot Sulfosalicylic Acd Urine Urobilinogen Ur Leukocyte Esterase Urine RBC Urine WBC Ur Epithelial Cells Urine Bacteria Urine Culture Comments Disposition: Intermediate Care Facility ICF Condition: Stable Referrals: Magdalena Noriega MD [Primary Care Provider] - Additional Patient Instructions (free text): Dr. Francis will see the patient during AR rounds on 10/27/2017 Prescriptions (Any new or edited meds): Sulfamethoxazole/Trimethoprim [Bactrim Ds] 1 tab PO BID #5 tablet Complete Home Medications List: Complete Home Medication List: Calcium Carbonate [Tums] 500 mg PO TID 09/13/14 Cholecalciferol (Vitamin D3) [Vitamin D3] 5,000 unit PO DAILY 09/13/14 Cyanocobalamin (Vitamin B-12) [B-12] 1,000 mcg PO DAILY 09/13/14 Multivitamin [Multi-Vitamin Daily] 1 each PO DAILY 09/13/14 Simvastatin [Zocor] 40 mg PO HS 09/13/14 Thiamine HCl [B-1] 100 mg PO DAILY 09/13/14 Polyethylene Glycol 3350 [Miralax] 17 gm PO DAILY btl 09/20/14 Pantoprazole Sodium [Protonix] 40 mg PO DAILY 12/04/14 Lisinopril [Zestril] 20 mg PO DAILY #30 tablet 05/17/15 0.9 % Sodium Chloride [Nasal Mist] 2 spray NS QID 08/17/15 Cetirizine HCl [Wal-Zyr] 10 mg PO Q12H 08/17/15 Furosemide [Lasix] 40 mg PO MOWEFR 08/17/15 Propranolol HCl [Inderal] 20 mg PO Q8H 08/17/15 Topiramate [Topamax] 100 mg PO BID 08/17/15 Lancets [Fingerstix] 1 each ACHS #1 each 08/22/15 Blood Sugar Diagnostic [Test Strips] 1 each [facility] 12/28/15 Cranberry Fruit Concentrate [Cranberry] 450 mg PO DAILY 12/28/15 Cyclosporine [Restasis] 1 each EACHEYE BID 12/28/15 Insulin Aspart [Novolog] See Protocol [facility] 12/28/15 Levothyroxine Sodium [Synthroid] 300 mcg PO DAILY 12/28/15 Magnesium Hydroxide [Milk Of Magnesia] 30 ml PO DAILY PRN 12/28/15 Aspirin [Marcelo Chewable Aspirin] 81 mg PO DAILY 04/10/17 Gabapentin 300 mg PO TID 04/10/17 Fluticasone Propionate [Flonase] 2 spray NS BID PRN 04/14/17 traMADol HCL [Tramadol HCl] 50 mg PO Q8H PRN 04/14/17 Acetaminophen 650 mg PO QID PRN 10/08/17 Insulin Detemir [Levemir] 120 unit SQ BID 10/08/17 Diclofenac Sodium [Voltaren] 100 gm TP TID PRN 10/20/17 Glycerin/Witch Essie Worthing [Tucks Medicated Pads] 1 appl TP TID PRN 10/20/17 Lurasidone HCl [Latuda] 60 mg PO BID 10/20/17 Nystatin [Mycostatin Powder] 15 gm TP TID PRN 10/20/17 Divalproex Sodium [Depakote ER] 1,500 mg PO HS 10/21/17 Sulfamethoxazole/Trimethoprim [Bactrim Ds] 1 tab PO BID #5 tablet 10/22/17 Docusate Sodium [Colace] 100 mg PO DAILY 10/25/17 <Jayde Francis - Last Filed: 11/03/17 11:32> (1) Urinary tract infection Problem: Acute Qualifiers: Urinary tract infection type: acute cystitis (2) Leucocytosis Problem: Acute Qualifiers: Leukocytosis type: unspecified Qualified Code(s): D72.829 - Elevated white blood cell count, unspecified Description of Stay: ADMISSION DATE: 10/20/2017 DISCHARGE DATE: 10/22/[address] Bell: Meka Vee, is a 72-year-old white female, patient of Dr. Noriega, resident of the [facility], with previous medical history of bipolar disorder, COPD, hypertension, hypothyroidism, dementia who was brought to the emergency room on 10/20/2017 because of altered mental status. Due to the patient's current altered mental status and history of dementia, I am not able to get any history from the patient. The history is based on the emergency room notes which basically says that he was transferred here for altered mental status and her work up showed she has elevated WBC, Lactic acid and UTI on her urinalysis. Her CTS of the head did not show any acute intracranial process and CXR showed no acute cardiopulmonary findings. She was then admitted for further treatment. HOSPITAL COURSE: The patient was admitted for a UTI. There was mention of possible sepsis on admission but I do not agree with this diagnosis. The patient has remained afebrile and hemodynamically stable since arrival in the ED. The patient had an elevated lactic acid but she does not have lactic acidosis and her lactic acid was not greater than 4 so her diagnosis is rather hyperlactatemia, not lactic acidosis and not sepsis. The patient was treated with IV antibiotics during her stay and this was transitioned to oral Bactrim DS at discharge. Procedures Performed: none Results and Findings: Lab Pending Results 10/20/17 10/20/17 10/20/17 11:21 11:45 11:45 WBC 17.5 H D RBC 3.80 L Hgb 13.0 Hct 40.3 MCV 106.1 H MCH 34.2 H MCHC 32.3 RDW 12.7 Plt Count 224 MPV 9.9 Neutrophils % (Manual) 52 Band Neuts % (Manual) 1 Lymphocytes % (Manual) 38 Monocytes % (Manual) 5 Eosinophils % (Manual) 1 Immature Granulocytes 3 H Neutrophils # (Manual) 9.1 H Lymphocytes # (Manual) 6.7 H Monocytes # (Manual) 0.9 Eosinophils # (Manual) 0.2 Platelet Estimate RBC Morphology pCO2 pO2 HCO3 Total CO2 Base Excess ABG pH ABG O2 Sat (Measured) Sodium 135 Plasma Sodium 136 Potassium 4.1 Chloride 100 Carbon Dioxide 24.5 Anion Gap 14.6 H BUN 31 H Creatinine 1.46 H Est GFR (Non-Af Amer) 38 L BUN/Creatinine Ratio 21.2 Random Glucose 149 H D Lactic Acid, Venous Calcium 9.9 Calcium Adj for Albumin 10.5 H Total Bilirubin 0.5 AST 38 ALT 35 Alkaline Phosphatase 138 C-Reactive Prot, Quant 16.4 H Total Protein 9.3 H Albumin 3.1 L Procalcitonin Urine Color Dark yellow Urine Appearance Cloudy Urine pH 6.0 Ur Specific Oolitic 1.025 Urine Protein 30 H Urine Glucose (UA) Negative Urine Ketones Negative Urine Blood 10 H Urine Nitrate Negative Urine Bilirubin Negative Prot Sulfosalicylic Acd 1+ Urine Urobilinogen 2.0 H Ur Leukocyte Esterase 75 H Urine RBC 5-10 H Urine WBC 10-25 H Ur Epithelial Cells 0-5 Urine Bacteria 2+ H Urine Culture Comments Culture to follow 10/20/17 10/20/17 10/20/17 11:45 11:45 12:35 WBC RBC Hgb Hct MCV MCH MCHC RDW Plt Count MPV Neutrophils % (Manual) Band Neuts % (Manual) Lymphocytes % (Manual) Monocytes % (Manual) Eosinophils % (Manual) Immature Granulocytes Neutrophils # (Manual) Lymphocytes # (Manual) Monocytes # (Manual) Eosinophils # (Manual) Platelet Estimate RBC Morphology pCO2 34.7 pO2 69.7 L HCO3 21.2 Total CO2 22.3 Base Excess -2.9 L ABG pH 7.40 ABG O2 Sat (Measured) 94.2 Sodium Plasma Sodium Potassium Chloride Carbon Dioxide Anion Gap BUN Creatinine Est GFR (Non-Af Amer) BUN/Creatinine Ratio Random Glucose Lactic Acid, Venous 2.8 H* Calcium Calcium Adj for Albumin Total Bilirubin AST ALT Alkaline Phosphatase C-Reactive Prot, Quant Total Protein Albumin Procalcitonin 0.10 Urine Color Urine Appearance Urine pH Ur Specific Oolitic Urine Protein Urine Glucose (UA) Urine Ketones Urine Blood Urine Nitrate Urine Bilirubin Prot Sulfosalicylic Acd Urine Urobilinogen Ur Leukocyte Esterase Urine RBC Urine WBC Ur Epithelial Cells Urine Bacteria Urine Culture Comments 10/20/17 10/21/17 10/21/17 14:36 04:15 04:15 WBC 10.7 H D RBC 3.11 L Hgb 10.5 L Hct 32.4 L MCV 104.2 H MCH 33.8 H MCHC 32.4 RDW 12.6 Plt Count 162 MPV 9.6 Neutrophils % (Manual) 51 Band Neuts % (Manual) 2 Lymphocytes % (Manual) 36 Monocytes % (Manual) 8 Eosinophils % (Manual) 2 Immature Granulocytes 1 Neutrophils # (Manual) 5.5 Lymphocytes # (Manual) 3.9 H Monocytes # (Manual) 0.9 Eosinophils # (Manual) 0.2 Platelet Estimate Normal RBC Morphology Normal pCO2 pO2 HCO3 Total CO2 Base Excess ABG pH ABG O2 Sat (Measured) Sodium 136 Plasma Sodium 137 Potassium 3.8 Chloride 103 Carbon Dioxide 23.9 L Anion Gap 12.9 BUN 25 H Creatinine 1.25 Est GFR (Non-Af Amer) 45 L BUN/Creatinine Ratio 20.0 Random Glucose 142 H Lactic Acid, Venous 3.4 H* Calcium 8.4 Calcium Adj for Albumin 9.7 Total Bilirubin 0.4 AST 23 ALT 24 Alkaline Phosphatase 95 C-Reactive Prot, Quant Total Protein 6.8 Albumin 2.0 L Procalcitonin Urine Color Urine Appearance Urine pH Ur Specific Oolitic Urine Protein Urine Glucose (UA) Urine Ketones Urine Blood Urine Nitrate Urine Bilirubin Prot Sulfosalicylic Acd Urine Urobilinogen Ur Leukocyte Esterase Urine RBC Urine WBC Ur Epithelial Cells Urine Bacteria Urine Culture Comments Discharge Location: [facility] Level of Care: ICF Discharge Activity: Activity as tolerated Discharge Diet: Resume usual diet
[2017-10-22 11:24] VITALS: BP 148/72
== END 2017-10-22 14:00 | DRG 690 ==
LOC: ER 10:58 → MS 14:49
PROVIDERS: ADMIT Internal Medicine; ATTEND Internal Medicine
DX: R53.1 Weakness; N18.3 Chronic kidney disease, stage 3 (moderate); G89.4 Chronic pain syndrome; I12.9 Hypertensive chronic kidney disease with stage 1 through stage 4 chronic kidney disease, or unspecified chronic kidney disease; Z68.42 Body mass index [BMI] 45.0-49.9, adult; R40.2412 Glasgow coma scale score 13-15, at arrival to emergency department; N39.0 Urinary tract infection, site not specified; F02.80 Dementia in other diseases classified elsewhere, unspecified severity, without behavioral disturbance, psychotic disturbance, mood disturbance, and anxiety; D72.829 Elevated white blood cell count, unspecified; K50.90 Crohn's disease, unspecified, without complications; R41.82 Altered mental status, unspecified; E11.22 Type 2 diabetes mellitus with diabetic chronic kidney disease; G30.9 Alzheimer's disease, unspecified; E66.01 Morbid (severe) obesity due to excess calories
CPT/HCPCS: 36415; 36600; 70450; 71010; 71045; 80053; 81001; 82803; 83605; 84145; 85007; 85025; 86140; 87040; 87077; 87081; 87086; 87186; 93005; 94762; 96361; 96365; 99284; 99285

== ENCOUNTER 2017-11-14 12:38 | Observation (INO) | payer MEDICAID, MEDICARE ==
[2017-11-14 13:17] LABS: Hematocrit 34.8 % (37.0-47.0); Hemoglobin 11.1 gm/dL (12.5-16.0); Mean Cell Volume 106.7 fl (78-100); Mean Corpuscular Hgb Conc 31.9 g/dl (32-36); Mean Platelet Volume 9.9 fl (8-12.5); Platelet Count 272 K/mm3 (150-450); Red Blood Count 3.26 M/mm3 (4.2-5.4); Red Cell Distribution Width 14.1 % (11.5-14.0); White Blood Count 7.6 K/mm3 (4.0-10.5)
[2017-11-14 13:28] LABS: Total Cells Counted 100
[2017-11-14 13:29] LABS: Albumin * 2.4 gm/dl (3.4-5.0); Anion Gap 12.8 mmol/L (6.8-13.8); BUN/Creatinine Ratio 10.8 (9.0-21.6); Bilirubin, Total 0.3 mg/dL (0.0-1.1); Ca. Corrected For Albumin 10.4 mg/dL (8.4-10.2); Calcium * 9.4 mg/dL (7.9-10.9); Carbon Dioxide 28.6 mmol/L (24-32.6); Potassium 4.4 mmol/L (3.4-4.6); Total Protein 7.6 gm/dL (6.2-8.2)
[2017-11-14] MEDS: NORMAL SALINE 1,000 ML IV PRN ×2 (13:43→21:57)
[2017-11-14 13:52] LABS: Urine Appearance Cloudy (CLEAR); Urine Bilirubin Negative (NEGATIVE); Urine Blood 5 /ul (NEGATIVE); Urine Color Yellow; Urine Ketone Negative (NEGATIVE); Urine Protein 15 mg/dL (NEGATIVE); Urine Specific Gravity 1.015 SP.GR. (1.005-1.010); Urine Urobilinogen Normal (NORMAL)
[2017-11-14 13:53] LABS: Urine Bacteria 3+; Urine Nitrite Negative (NEGATIVE); Urine RBC 0-5 /hpf (0-5); Urine WBC >50 /hpf (0-5)
[2017-11-14 14:15] LABS: Band 3 % (0-2.0); Lymphocyte 36 % (20-51); Macrocytosis 1+; Monocyte 19 % (0-9); Neutrophil 42 % (42-75); Neutrophil # 3.2 K/mm3 (1.3-6.0)
[2017-11-14 14:16] LABS: Platelet Estimate Normal (NORMAL)
--- NOTE | 2017-11-14 14:22 | ERNOTE ---
Neuro HPI ER Record Date of Service: 11/14/17 Presenting Symptoms: other - hx of fever and mental status change Time Seen by Provider: 11/14/17 12:42 Source: EMS notes reviewed Exam Limitations: dementia Immunizations: IMMUNIZATION HX Immunizations Up to Date Yes History of Influenza Vaccine Yes Hx Pneumococcal Vaccination Yes Allergies/Adverse Reactions: Allergies Allergy/AdvReac Type Severity Reaction Status Date / Time azithromycin Allergy Intermediate Verified 11/14/17 12:42 baclofen Allergy Intermediate Verified 11/14/17 12:42 ciprofloxacin [From Cipro] Allergy Intermediate Verified 11/14/17 12:42 ciprofloxacin HCl Allergy Intermediate Verified 11/14/17 12:42 [From Cipro] clindamycin Allergy Intermediate Verified 11/14/17 12:42 phenobarbital Allergy Intermediate Verified 11/14/17 12:42 Sulfa (Sulfonamide Allergy Intermediate Verified 11/14/17 12:42 Antibiotics) [Sulfa(Sulfonamide Antibiotics)] tizanidine [Tizanidine] Allergy Intermediate Verified 11/14/17 12:42 verapamil [Verapamil] Allergy Intermediate Verified 11/14/17 12:42 cephalexin monohydrate Allergy Verified 11/14/17 12:42 [From Keflex] levofloxacin [From Levaquin] Allergy Verified 11/14/17 12:42 mesalamine [From Pentasa] Allergy Verified 11/14/17 12:42 Neuromuscular Blockers, Allergy Verified 11/14/17 12:42 Steroidal Home Medications: HOME MEDICATIONS Calcium Carbonate [Tums] 500 mg PO TID 09/13/14 [Last Taken 10/24/17 11:00] Cyanocobalamin (Vitamin B-12) [B-12] 1,000 mcg PO DAILY 09/13/14 [Last Taken 11/04 08:00] Multivitamin [Multi-Vitamin Daily] 1 each PO DAILY 09/13/14 [Last Taken 07:00] Simvastatin [Zocor] 40 mg PO HS 09/13/14 [Last Taken 10/23/17 20:00] Thiamine HCl [B-1] 100 mg PO DAILY 09/13/14 [Last Taken 10/24/17 07:00] Polyethylene Glycol 3350 [Miralax] 17 gm PO DAILY btl 09/20/14 [Last Taken 11/04 07:00] Pantoprazole Sodium [Protonix] 40 mg PO DAILY 12/04/14 [Last Taken 10/24/17 07: 00] Lisinopril [Zestril] 20 mg PO DAILY #30 tablet 05/17/15 [Last Taken 10/24/17 07: 00] 0.9 % Sodium Chloride [Nasal Mist] 2 spray NS QID 08/17/15 [Last Taken 10/24/17 11:00] Cetirizine HCl [Wal-Zyr] 10 mg PO Q12H 08/17/15 [Last Taken 10/24/17 07:00] Furosemide [Lasix] 40 mg PO MOWEFR 08/17/15 [Last Taken 10/23/17 07:00] Propranolol HCl [Inderal] 20 mg PO TID 08/17/15 [Last Taken 10/24/17 07:00] Topiramate [Topamax] 100 mg PO BID 08/17/15 [Last Taken 10/24/17 07:00 0700] Lancets [Fingerstix] 1 each [facility] #1 each 08/22/15 [Last Taken 10/24/17 11:00] Blood Sugar Diagnostic [Test Strips] 1 each [facility] 12/28/15 [Last Taken ] Cranberry Fruit Concentrate [Cranberry] 450 mg PO DAILY 12/28/15 [Last Taken 11/04 07:00] Cyclosporine [Restasis] 1 each EACHEYE BID 12/28/15 [Last Taken 10/24/17 07:00] Insulin Aspart [Novolog] See Protocol [facility] 12/28/15 [Last Taken 10/24/17 11: 00] Levothyroxine Sodium [Synthroid] 300 mcg PO DAILY 12/28/15 [Last Taken 10/24/17 07:00] Aspirin [Marcelo Chewable Aspirin] 81 mg PO DAILY 04/10/17 [Last Taken 10/24/17 07 :00] Gabapentin 300 mg PO TID 04/10/17 [Last Taken 10/24/17 11:00] traMADol HCL [Tramadol HCl] 50 mg PO Q8H PRN 04/14/17 [Last Taken Unknown] Acetaminophen 650 mg PO QID PRN 10/08/17 [Last Taken Unknown] Insulin Detemir [Levemir] 120 unit SQ BID 10/08/17 [Last Taken 10/24/17 07:00] Diclofenac Sodium [Voltaren] 100 gm TP TID PRN 10/20/17 [Last Taken Unknown] Lurasidone HCl [Latuda] 60 mg PO BID 10/20/17 [Last Taken 10/24/17 07:00] Nystatin [Mycostatin Powder] 15 gm TP TID PRN 10/20/17 [Last Taken Unknown] Divalproex Sodium [Depakote ER] 1,500 mg PO HS 10/21/17 [Last Taken 10/23/17 19: 30] Docusate Sodium [Colace] 100 mg PO DAILY 10/25/17 [Last Taken 10/23/17 19:30] - History of Present Illness Narrative: patient reported by fpc to have alterred mental status with fever, hx of urosepsis Onset: cannot confirm onset Severity: moderate - Character of Deficits New weakness: Present: general (diffuse) Additional Deficits: Present: impaired speech, decrease ability to stand, decrease ability to walk Baseline Cognition: Present: poor alertness Baseline Gait: Present: walks only w/ assistance Associated Symptoms: Reports: fever/chills, altered mental status Prior Treament: Reports: recently seen, treated by physician Review of Systems - Narrative Narrative: hx of dementia, bipolar - Review of Systems Constitutional: Present: See HPI, fever, weakness, malaise, decreased activity level EYE: Present: no symptoms reported ENT: Present: no symptoms reported Respiratory: Present: no symptoms reported Cardiology: Present: no symptoms reported Gastrointestinal/Abdominal: Present: no symptoms reported Genitourinary: Present: no symptoms reported Musculoskeletal: Present: no symptoms reported Skin: Present: no symptoms reported Neurological: Present: no symptoms reported Endocrine: Present: no symptoms reported Hematologic/Lymphatic: Present: no symptoms reported Psych: Present: no symptoms reported All Other Systems: All systems neg except as marked Medical History (Last Reviewed 11/14/17 @ 12:42 by Carey Welch RN) Arthritis Bipolar 1 disorder COPD (chronic obstructive pulmonary disease) Cervicalgia Chronic pain Coronary artery disease Crohns disease DVT (deep venous thrombosis) Diabetes mellitus Diabetic neuropathy Edema Fusion of spine, cervical region GERD (gastroesophageal reflux disease) Hyperlipidemia Hypertension Hypothyroidism Major depressive disorder Migraine Muscle weakness Palmar fascial fibromatosis [dupuytren] Seborrheic keratosis Senile dementia Sepsis Subacute bacterial endocarditis Unspecified dementia with behavioral disturbance Urinary tract infection Surgical History: Surgical History (Last Reviewed 11/14/17 @ 12:42 by Carey Welch RN) History of back surgery Onset Date: ~2006 History of cardiac catheterization Onset Date: ~2002 History of esophagogastroduodenoscopy (EGD) Onset Date: ~2005 History of hip replacement Onset Date: ~10/2004 Hx of cholecystectomy Hx of colonoscopy Onset Date: ~2005 Family History: Family History (Last Reviewed 10/24/17 @ 22:08 by Abbi Raines RN) Mother Diabetes Heart disease Hypertension Brother Heart disease Father Heart disease Grandfather Myocardial infarction Grandmother Colon cancer Social History: Preferred Language Kinyarwanda Do you have any cheondoism or Yes cultural preference? Smoking Status Never smoker Abuse History No History of abuse Psych History Hx of Bipolar Disorder,Currently on Meds Alcohol Use none Drug Use none Physical Exam - Physical Exam General Appearance: Present: lethargic Head Exam: Present: normal inspection, no evidence of injury Ears, Nose, Throat: Present: normal ENT inspection, normal pharynx Neck: Present: normal inspection, nontender Respiratory: Present: no respiratory distress, normal breath sounds, no accessory muscle use, chest nontender, lungs clear Cardiovascular/Chest: Present: regular rate, rhythm, no murmur, normal peripheral pulses Gastrointestinal/Abdominal: Present: normal bowel sounds, nontender, nondistended, soft, no organomegaly Rectal Exam: Present: nontender, normal rectal tone Back Exam: Present: normal inspection, normal range of motion, no CVA tenderness , no vertebral tenderness Extremity Exam: Present: normal inspection, non-tender Neurological Exam: Present: disoriented to person, disoriented to time, disoriented to place Skin Exam: Present: normal color, warm/dry ED Progress - Date and Time Seen: Date and Time: 11/14/17 14:21 unchanged - Results and Orders Patient's Lab Results:: I have reviewed the patient's lab results. - Vital Signs Patient's Vital Signs:: I have reviewed the patient's vital signs. Vital Signs: Vital Signs 11/14/17 12:39 11/14/17 13:42 11/14/17 13:55 Temperature 36.8 C 36.5 C Pulse Rate 87 79 76 Respiratory Rate 15 16 Blood Pressure 139/50 151/49 H O2 Sat by Pulse Oximetry 92 L 94 - EKG EKG: NSR EKG read: Interp. by me - X-Ray X-Ray #1 X-Ray: chest - no acute process Interpretation: Discd w/ radiologist - Progress/Reassessment Chief Complaint: Altered Mental Status Progress:: Unchanged - Transfer of Care Pending Results: X-ray results Plan - Plan Plan: to admit to observation, case discussed case with dr irvin Departure Clinical Impression: Altered mental status, unspecified, Urinary tract infection, Dementia - Departure Disposition: Still a patient Condition: Fair Referrals: Magdalena Noriega MD [Primary Care Provider] -
[2017-11-14] MEDS ORDERED: NORMAL SALINE 1,000 ML IV PRN (14:39)
[2017-11-14] MEDS ORDERED: DEXTROSE 50%-WATER 50 ML SYRG IV ONE (16:48)
[2017-11-14] MEDS: NITROFURANTOIN/NITROFURAN MAC 100 MG CAPSULE PO SCH ×2 (17:52→20:48)
[2017-11-14] MEDS ORDERED: POLYETHYLENE GLYCOL 3350 119 GM BTL PO PRN (20:04)
[2017-11-14] MEDS: TOPIRAMATE 50 MG TABLET PO SCH (20:48)
[2017-11-14] MEDS: DIVALPROEX SODIUM 500 MG TAB.SR.24H PO SCH (20:48)
[2017-11-14] MEDS: DOCUSATE SODIUM 100 MG CAPSULE PO SCH (20:48)
[2017-11-14] MEDS: traMADol HCL 50 MG TABLET PO PRN (20:48)
[2017-11-14] MEDS: ACETAMINOPHEN 325 MG TABLET PO PRN (20:48)
[2017-11-14] MEDS: GABAPENTIN 300 MG CAPSULE PO SCH (20:49)
[2017-11-14] MEDS: NYSTATIN 15 APPL BTL TP PRN (20:50)
[2017-11-14] MEDS: SIMVASTATIN 40 MG TABLET PO SCH (20:50)
[2017-11-14] MEDS: LURASIDONE HCL 80 MG TABLET PO SCH (21:49)
[2017-11-15] MEDS: NORMAL SALINE 1,000 ML IV PRN (05:37)
--- NOTE | 2017-11-15 06:52 | PN ---
Subjective - Date and Time Seen Date: 11/15/17 Time: 06:45 Subjective Narrative: Pt seen this morning. Appears fatigue. No acute events overnight. Blood sugars were on the lower side, so did not received any insulin. Objective - Vitals Vitals: Last Vital Signs Temp 36.6 C 11/15/17 06:12 Pulse 83 11/15/17 06:12 Resp 18 11/15/17 06:12 BP 114/60 11/15/17 06:12 Pulse Ox 97 11/15/17 06:12 - Abnormal Lab Findings Abnormal Lab Findings: Abnormal Lab Results 11/14/17 11/14/17 11/14/17 Range/Units 12:55 12:55 13:10 RBC 3.26 L (4.2-5.4) M/mm3 Hgb 11.1 L (12.5-16.0) gm/dL Hct 34.8 L (37.0-47.0) % MCV 106.7 H (78-100) fl MCH 34.0 H (27-31) pg MCHC 31.9 L (32-36) g/dl RDW 14.1 H (11.5-14.0) % Band Neuts % (Manual) 3 H (0-2.0) % Monocytes % (Manual) 19 H (0-9) % Monocytes # (Manual) 1.4 H (0.0-1.0) k/mm3 pO2 80.5 L (83.0-108.0) mmHg Total CO2 24.4 H (19.0-24.0) mmol/L ABG pH 7.46 H (7.35-7.45) Est GFR (Non-Af Amer) 40 L (60-130) mL/min Random Glucose 113 H (70-110) mg/dL Calcium Adj for Albumin 10.4 H (8.4-10.2) mg/dL ALT 16 L (19-67) U/L C-Reactive Prot, Quant 5.0 H (0.0-0.9) mg/dL Albumin 2.4 L (3.4-5.0) gm/dl Urine pH (5.0-7.0) pH Urine Protein (NEGATIVE) mg/dL Urine Blood (NEGATIVE) /ul Ur Leukocyte Esterase (NEGATIVE) /ul Urine WBC (0-5) /hpf Urine Bacteria (NONE) 11/14/17 Range/Units 13:25 RBC (4.2-5.4) M/mm3 Hgb (12.5-16.0) gm/dL Hct (37.0-47.0) % MCV (78-100) fl MCH (27-31) pg MCHC (32-36) g/dl RDW (11.5-14.0) % Band Neuts % (Manual) (0-2.0) % Monocytes % (Manual) (0-9) % Monocytes # (Manual) (0.0-1.0) k/mm3 pO2 (83.0-108.0) mmHg Total CO2 (19.0-24.0) mmol/L ABG pH (7.35-7.45) Est GFR (Non-Af Amer) (60-130) mL/min Random Glucose (70-110) mg/dL Calcium Adj for Albumin (8.4-10.2) mg/dL ALT (19-67) U/L C-Reactive Prot, Quant (0.0-0.9) mg/dL Albumin (3.4-5.0) gm/dl Urine pH 8.0 H (5.0-7.0) pH Urine Protein 15 H (NEGATIVE) mg/dL Urine Blood 5 H (NEGATIVE) /ul Ur Leukocyte Esterase 500 H (NEGATIVE) /ul Urine WBC >50 H (0-5) /hpf Urine Bacteria 3+ H (NONE) - Exam Constitutional: Present: Alert, No distress, Morbidly obese ENT Exam: Present: normal ENT inspection Neck: Present: non-tender, full range of motion Breasts: Present: Exam deferred Respiratory: Present: chest non-tender, No rales, No wheezing Cardiovascular/Chest: Present: normal peripheral pulses, regular rate, rhythm, edema Abdomen: Present: Normal bowel sounds, soft, nontender, obese /Rectal: Present: Exam deferred Extremity: Present: normal range of motion, non-tender, normal inspection Skin Exam: Present: warm/dry, no cyanosis Lymphatic: Present: no adenopathy Neurologic: Present: no motor/sensory deficits, alert Appearance: Present: impaired insight Eye contact: Present: cooperative, decreased rate of speech Thoughts: Present: no apparent hallucination Assessment/Plan - Problems/Diagnosis (1) UTI (urinary tract infection) Problem: Acute Narrative: Will cover with Macrobid for now as she has no signs of sepsis and the last urine culture showed sensitivity to Macrobid, & she also has an extensive list of allergy to several antibiotics/other medications. Await urine culture results to guide antibiotic treatment. (2) Hypoglycemia Problem: Acute Narrative: Due to low blood sugars, will hold her insulins for now and consider cutting back her levermir insulin from 120 bid to 60 bid. (3) Altered mental status Problem: Acute Qualifiers: Altered mental status type: disorientation Qualified Code(s): R41.0 - Disorientation, unspecified Narrative: Was likely due to the UTI. CXR did not indicate any pneumonia, Head CT was also negative. (4) COPD (chronic obstructive pulmonary disease) Problem: Chronic (5) GERD (gastroesophageal reflux disease) Problem: Chronic Qualifiers: (6) Hypertension Problem: Chronic Qualifiers: (7) Morbid obesity Problem: Chronic (8) Osteoarthritis Problem: Chronic (9) Diabetes Problem: Chronic Qualifiers: Diabetes mellitus type: type 2
[2017-11-15] MEDS: LEVOTHYROXINE SODIUM 100 MCG TABLET PO SCH (07:22)
[2017-11-15] MEDS: NYSTATIN 15 APPL BTL TP PRN (07:24)
[2017-11-15] MEDS: PROPRANOLOL HCL 20 MG TABLET PO SCH ×3 (08:10→16:14)
[2017-11-15] MEDS: GABAPENTIN 300 MG CAPSULE PO SCH ×3 (08:10→16:15)
[2017-11-15] MEDS: LURASIDONE HCL 80 MG TABLET PO SCH ×2 (08:10→20:35)
[2017-11-15] MEDS: NITROFURANTOIN/NITROFURAN MAC 100 MG CAPSULE PO SCH ×2 (08:10→20:36)
[2017-11-15] MEDS: CALCIUM CARBONATE 500 MG TAB.CHEW PO SCH ×3 (08:11→16:15)
[2017-11-15] MEDS: PANTOPRAZOLE SODIUM 40 MG TABLET.EC PO SCH (08:11)
[2017-11-15] MEDS: TOPIRAMATE 50 MG TABLET PO SCH ×2 (08:11→20:37)
[2017-11-15] MEDS: THIAMINE HCL 100 MG TABLET PO SCH (08:12)
[2017-11-15] MEDS: CYANOCOBALAMIN 1,000 MCG TABLET PO SCH (08:12)
[2017-11-15] MEDS: LISINOPRIL 20 MG TABLET PO SCH (08:12)
[2017-11-15] MEDS: traMADol HCL 50 MG TABLET PO PRN ×2 (09:00→20:38)
[2017-11-15] MEDS: ACETAMINOPHEN 325 MG TABLET PO PRN (14:21)
--- NOTE | 2017-11-15 16:46 | HP ---
Chief Complaint - Chief Complaint Date of Service: 11/14/17 Time of Service: 16:30 Chief Complaint: Altered Mental Status History of Present Illness: Meka is a 72 yo female with PMH of DMII and frequent UTI. [facility] sent her to the ER for evaluation today due to increased somnolence and confusion. Urine in the ER was suspicious for UTI. Reviewed prior Urine Culture Results. Upon my evaluation patient has no family members present and is awake but only makes eye contact she does not converse. Medical History (Last Reviewed 11/14/17 @ 15:32 by Tiffani Mendenhall RN) Urinary tract infection Arthritis Bipolar 1 disorder COPD (chronic obstructive pulmonary disease) Cervicalgia Chronic pain Coronary artery disease Crohns disease DVT (deep venous thrombosis) Diabetes mellitus Diabetic neuropathy Edema Fusion of spine, cervical region GERD (gastroesophageal reflux disease) Hyperlipidemia Hypertension Hypothyroidism Major depressive disorder Migraine Muscle weakness Palmar fascial fibromatosis [dupuytren] Seborrheic keratosis Senile dementia Sepsis Subacute bacterial endocarditis Unspecified dementia with behavioral disturbance Surgical History: Surgical History (Last Reviewed 11/14/17 @ 12:42 by Carey Welch RN) History of back surgery Onset Date: ~2006 History of cardiac catheterization Onset Date: ~2002 History of esophagogastroduodenoscopy (EGD) Onset Date: ~2005 History of hip replacement Onset Date: ~10/2004 Hx of cholecystectomy Hx of colonoscopy Onset Date: ~2005 Family History: Family History (Last Reviewed 10/24/17 @ 22:08 by Abbi Raines RN) Mother Diabetes Heart disease Hypertension Brother Heart disease Father Heart disease Grandfather Myocardial infarction Grandmother Colon cancer Social History: Patient Lives/Resources [facility] Utilized Preferred Language Spanish Do you have any mandaen or Yes: HINDUISM cultural preference? Smoking Status Unknown if ever smoked Have you smoked in the past 12 No months Abuse History No History of abuse Psych History Hx of Bipolar Disorder,Currently on Meds Alcohol Use none Drug Use none Review Of Systems (GEN) - Review of Systems Additional Comments: Review of systems not-obtainable due to current condition. Immunizations: IMMUNIZATION HX Immunizations Up to Date Yes History of Influenza Vaccine Yes Hx Pneumococcal Vaccination Yes Allergies/Adverse Reactions: Allergies Allergy/AdvReac Type Severity Reaction Status Date / Time azithromycin Allergy Intermediate Verified 11/14/17 12:42 baclofen Allergy Intermediate Verified 11/14/17 12:42 ciprofloxacin [From Cipro] Allergy Intermediate Verified 11/14/17 12:42 ciprofloxacin HCl Allergy Intermediate Verified 11/14/17 12:42 [From Cipro] clindamycin Allergy Intermediate Verified 11/14/17 12:42 phenobarbital Allergy Intermediate Verified 11/14/17 12:42 Sulfa (Sulfonamide Allergy Intermediate Verified 11/14/17 12:42 Antibiotics) [Sulfa(Sulfonamide Antibiotics)] tizanidine [Tizanidine] Allergy Intermediate Verified 11/14/17 12:42 verapamil [Verapamil] Allergy Intermediate Verified 11/14/17 12:42 cephalexin monohydrate Allergy Verified 11/14/17 12:42 [From Keflex] levofloxacin [From Levaquin] Allergy Verified 11/14/17 12:42 mesalamine [From Pentasa] Allergy Verified 11/14/17 12:42 Neuromuscular Blockers, Allergy Verified 11/14/17 12:42 Steroidal Home Medications: HOME MEDICATIONS Calcium Carbonate [Tums] 500 mg PO TID 09/13/14 [Last Taken 10/24/17 11:00] Cyanocobalamin (Vitamin B-12) [B-12] 1,000 mcg PO DAILY 09/13/14 [Last Taken 11/04 08:00] Multivitamin [Multi-Vitamin Daily] 1 each PO DAILY 09/13/14 [Last Taken 07:00] Simvastatin [Zocor] 40 mg PO HS 09/13/14 [Last Taken 10/23/17 20:00] Thiamine HCl [B-1] 100 mg PO DAILY 09/13/14 [Last Taken 10/24/17 07:00] Pantoprazole Sodium [Protonix] 40 mg PO DAILY 12/04/14 [Last Taken 10/24/17 07: 00] Lisinopril [Zestril] 20 mg PO DAILY #30 tablet 05/17/15 [Last Taken 10/24/17 07: 00] 0.9 % Sodium Chloride [Nasal Mist] 2 spray NS QID 08/17/15 [Last Taken 10/24/17 11:00] Cetirizine HCl [Wal-Zyr] 10 mg PO Q12H 08/17/15 [Last Taken 10/24/17 07:00] Furosemide [Lasix] 40 mg PO MOWEFR 08/17/15 [Last Taken 10/23/17 07:00] Propranolol HCl [Inderal] 20 mg PO TID 08/17/15 [Last Taken 10/24/17 07:00] Topiramate [Topamax] 100 mg PO BID 08/17/15 [Last Taken 10/24/17 07:00 0700] Lancets [Fingerstix] 1 each [facility] #1 each 08/22/15 [Last Taken 10/24/17 11:00] Blood Sugar Diagnostic [Test Strips] 1 each [facility] 12/28/15 [Last Taken ] Cranberry Fruit Concentrate [Cranberry] 450 mg PO DAILY 12/28/15 [Last Taken 11/04 07:00] Cyclosporine [Restasis] 1 each EACHEYE BID 12/28/15 [Last Taken 10/24/17 07:00] Insulin Aspart [Novolog] See Protocol [facility] 12/28/15 [Last Taken 10/24/17 11: 00] Levothyroxine Sodium [Synthroid] 300 mcg PO DAILY 12/28/15 [Last Taken 10/24/17 07:00] Aspirin [Marcelo Chewable Aspirin] 81 mg PO DAILY 04/10/17 [Last Taken 10/24/17 07 :00] Gabapentin 300 mg PO TID 04/10/17 [Last Taken 10/24/17 11:00] traMADol HCL [Tramadol HCl] 50 mg PO Q8H PRN 04/14/17 [Last Taken Unknown] Acetaminophen 650 mg PO QID PRN 10/08/17 [Last Taken Unknown] Insulin Detemir [Levemir] 120 unit SQ BID 10/08/17 [Last Taken 10/24/17 07:00] Diclofenac Sodium [Voltaren] 100 gm TP DAILY PRN 10/20/17 [Last Taken Unknown] Lurasidone HCl [Latuda] 60 mg PO BID 10/20/17 [Last Taken 10/24/17 07:00] Nystatin [Mycostatin Powder] 15 gm TP BID PRN 10/20/17 [Last Taken Unknown] Divalproex Sodium [Depakote ER] 1,500 mg PO HS 10/21/17 [Last Taken 10/23/17 19: 30] Docusate Sodium [Colace] 100 mg PO HS 10/25/17 [Last Taken 10/23/17 19:30] Polyethylene Glycol 3350 [Miralax] 17 gm PO DAILY PRN 11/14/17 [Last Taken Unknown] Exam - Exam Vital Signs: Vital Signs - Last Taken Temp 36.7 C 11/15/17 14:45 Pulse 76 11/15/17 16:14 Resp 18 11/15/17 14:45 BP 135/40 11/15/17 16:14 Pulse Ox 95 11/15/17 14:45 Constitutional: Present: Alert - awake, makes good eye contact but does not speak with me, Obese Eye Exam: bilateral eye: normal inspection Respiratory: Present: lungs clear, normal breath sounds Cardiovascular/Chest: Present: regular rate, rhythm, no murmur Abdomen: Present: Normal bowel sounds, soft, nontender Skin Exam: Present: normal color, warm/dry, no cyanosis Neurologic: Present: other - Does not speak or follow instructions Eye contact: Present: good eye contact Diagnostic Studies: Microbiology 11/14/17 13:13 Blood Culture - Preliminary Blood NO GROWTH 24 HOURS 11/14/17 13:13 Blood Culture - Preliminary Blood NO GROWTH 24 HOURS 11/14/17 15:54 - Final Nares MRSA Negative 11/14/17 13:25 Urine Culture - Preliminary Urine,Catheterized No Growth Laboratory Results WBC 7.6 K/mm3 (4.0-10.5) 11/14/17 12:55 RBC 3.26 M/mm3 (4.2-5.4) L 11/14/17 12:55 Hgb 11.1 gm/dL (12.5-16.0) L 11/14/17 12:55 Hct 34.8 % (37.0-47.0) L 11/14/17 12:55 MCV 106.7 fl (78-100) H 11/14/17 12:55 MCH 34.0 pg (27-31) H 11/14/17 12:55 MCHC 31.9 g/dl (32-36) L 11/14/17 12:55 RDW 14.1 % (11.5-14.0) H 11/14/17 12:55 Plt Count 272 K/mm3 (150-450) 11/14/17 12:55 MPV 9.9 fl (8-12.5) 11/14/17 12:55 Neutrophils % (Manual) 42 % (42-75) 11/14/17 12:55 Band Neuts % (Manual) 3 % (0-2.0) H 11/14/17 12:55 Lymphocytes % (Manual) 36 % (20-51) 11/14/17 12:55 Monocytes % (Manual) 19 % (0-9) H 11/14/17 12:55 Neutrophils # (Manual) 3.2 K/mm3 (1.3-6.0) 11/14/17 12:55 Lymphocytes # (Manual) 2.7 k/mm3 (1.5-3.5) 11/14/17 12:55 Monocytes # (Manual) 1.4 k/mm3 (0.0-1.0) H 11/14/17 12:55 Platelet Estimate Normal (NORMAL) 11/14/17 12:55 Macrocytosis 1+ 11/14/17 12:55 pCO2 34.0 mmHg (32.0-45.0) 11/14/17 13:10 pO2 80.5 mmHg (83.0-108.0) L 11/14/17 13:10 HCO3 23.4 mmol/L (21.0-28.0) 11/14/17 13:10 Total CO2 24.4 mmol/L (19.0-24.0) H 11/14/17 13:10 Base Excess -0.1 mmol/L (-2.0-3.0) 11/14/17 13:10 ABG pH 7.46 (7.35-7.45) H 11/14/17 13:10 ABG O2 Sat (Measured) 96.5 % (94.0-98.0) 11/14/17 13:10 Sodium 138 mmol/L (132-142) 11/14/17 12:55 Plasma Sodium 138 mmol/L (130-142) 11/14/17 12:55 Potassium 4.4 mmol/L (3.4-4.6) 11/14/17 12:55 Chloride 101 mmol/L (97-106) 11/14/17 12:55 Carbon Dioxide 28.6 mmol/L (24-32.6) 11/14/17 12:55 Anion Gap 12.8 mmol/L (6.8-13.8) 11/14/17 12:55 BUN 15 mg/dL (3-23) 11/14/17 12:55 Creatinine 1.39 mg/dL (0.4-1.4) 11/14/17 12:55 Est GFR (Non-Af Amer) 40 mL/min (60-130) L 11/14/17 12:55 BUN/Creatinine Ratio 10.8 (9.0-21.6) 11/14/17 12:55 Random Glucose 113 mg/dL (70-110) H 11/14/17 12:55 Lactic Acid, Venous 1.8 mmol/L (0.4-2.0) 11/14/17 12:55 Calcium 9.4 mg/dL (7.9-10.9) 11/14/17 12:55 Calcium Adj for Albumin 10.4 mg/dL (8.4-10.2) H 11/14/17 12:55 Total Bilirubin 0.3 mg/dL (0.0-1.1) 11/14/17 12:55 AST 12 U/L (0-48) 11/14/17 12:55 ALT 16 U/L (19-67) L 11/14/17 12:55 Alkaline Phosphatase 98 U/L (50-170) 11/14/17 12:55 C-Reactive Prot, Quant 5.0 mg/dL (0.0-0.9) H 11/14/17 12:55 Total Protein 7.6 gm/dL (6.2-8.2) 11/14/17 12:55 Albumin 2.4 gm/dl (3.4-5.0) L 11/14/17 12:55 Procalcitonin 0.10 ng/mL (0.05-0.50) 11/14/17 12:55 Urine Color Yellow 11/14/17 13:25 Urine Appearance Cloudy (CLEAR) 11/14/17 13:25 Urine pH 8.0 pH (5.0-7.0) H 11/14/17 13:25 Ur Specific [place] 1.015 SP.GR. (1.005-1.010) 11/14/17 13:25 Urine Protein 15 mg/dL (NEGATIVE) H 11/14/17 13:25 Urine Glucose (UA) Negative mg/dL (NEGATIVE) 11/14/17 13:25 Urine Ketones Negative mg/dL (NEGATIVE) 11/14/17 13:25 Urine Blood 5 /ul (NEGATIVE) H 11/14/17 13:25 Urine Nitrate Negative (NEGATIVE) 11/14/17 13:25 Urine Bilirubin Negative mg/dl (NEGATIVE) 11/14/17 13:25 Prot Sulfosalicylic Acd 1+ mg/dL (0) 11/14/17 13:25 Urine Urobilinogen Normal EU/dl (NORMAL) 11/14/17 13:25 Ur Leukocyte Esterase 500 /ul (NEGATIVE) H 11/14/17 13:25 Urine RBC 0-5 /hpf (0-5) 11/14/17 13:25 Urine WBC >50 /hpf (0-5) H 11/14/17 13:25 Ur Epithelial Cells None seen /hpf (0-5) 11/14/17 13:25 Urine Bacteria 3+ (NONE) H 11/14/17 13:25 Urine Culture Comments Culture to follow 11/14/17 13:25 Assessment/Plan - Narrative Narrative: Meka is a 72 yo female with: 1) Altered Mental Status - Based on UA and history I suspect that this is another UTI. Based on prior cultures and allergies I will start her on macrobid and monitor response. Will admit to observation. 2) UTI 3) DMII - Patient on the floor had glucose of 61, because she is not oriented enough to swallow she will be given an amp of D50. Will hold insulin for now and restart as needed. Will monitor blood sugars. - Assessment/Plan (1) Altered mental status Problem: Acute (2) Urinary tract infection Problem: Acute
[2017-11-15] MEDS: INSULIN LISPRO 100 UNITS/ML VIAL SC SCH (16:52)
[2017-11-15] MEDS ORDERED: INSULIN ASPART 100 UNITS/ML VIAL SC SCH (17:00)
[2017-11-15] MEDS: SODIUM CHLORIDE 45 SPRAY BTL NS SCH ×2 (17:57→20:36)
[2017-11-15] MEDS: DOCUSATE SODIUM 100 MG CAPSULE PO SCH (20:34)
[2017-11-15] MEDS: DIVALPROEX SODIUM 500 MG TAB.SR.24H PO SCH (20:34)
[2017-11-15] MEDS: SIMVASTATIN 40 MG TABLET PO SCH (20:37)
[2017-11-15] MEDS: INSULIN DETEMIR 100 UNITS/ML VIAL SC SCH (21:05)
--- NOTE | 2017-11-16 05:13 | DS ---
<Jayde Francis - Last Filed: 11/16/17 13:02> Procedures Performed: none Results and Findings: Pending Mircobiology Results 11/14/17 13:25 Urine,Catheterized Urine Culture - Preliminary Streptococcus Species Yeast Species 11/14/17 13:13 Blood Blood Culture - Preliminary NO GROWTH 24 HOURS 11/14/17 13:13 Blood Blood Culture - Preliminary NO GROWTH 24 HOURS Lab Pending Results 11/14/17 12:55: WBC 7.6, RBC 3.26 L, Hgb 11.1 L, Hct 34.8 L, MCV 106.7 H, MCH 34.0 H, MCHC 31.9 L, RDW 14.1 H, Plt Count 272, MPV 9.9, Neutrophils % (Manual) 42, Band Neuts % (Manual) 3 H, Lymphocytes % (Manual) 36, Monocytes % (Manual) 19 H, Neutrophils # (Manual) 3.2, Lymphocytes # (Manual) 2.7, Monocytes # ( Manual) 1.4 H, Platelet Estimate Normal, Macrocytosis 1+ 11/14/17 12:55: Sodium 138, Plasma Sodium 138, Potassium 4.4, Chloride 101, Carbon Dioxide 28.6, Anion Gap 12.8, BUN 15, Creatinine 1.39, Est GFR (Non-Af Amer) 40 L, BUN/Creatinine Ratio 10.8, Random Glucose 113 H, Calcium 9.4, Calcium Adj for Albumin 10.4 H, Total Bilirubin 0.3, AST 12, ALT 16 L, Alkaline Phosphatase 98, C-Reactive Prot, Quant 5.0 H, Total Protein 7.6, Albumin 2.4 L 11/14/17 12:55: Lactic Acid, Venous 1.8 11/14/17 12:55: Procalcitonin 0.10 11/14/17 13:10: pCO2 34.0, pO2 80.5 L, HCO3 23.4, Total CO2 24.4 H, Base Excess -0.1, ABG pH 7.46 H, ABG O2 Sat (Measured) 96.5 11/14/17 13:25: Urine Color Yellow, Urine Appearance Cloudy, Urine pH 8.0 H, Ur Specific [place] 1.015, Urine Protein 15 H, Urine Glucose (UA) Negative, Urine Ketones Negative, Urine Blood 5 H, Urine Nitrate Negative, Urine Bilirubin Negative, Prot Sulfosalicylic Acd 1+, Urine Urobilinogen Normal, Ur Leukocyte Esterase 500 H, Urine RBC 0-5, Urine WBC >50 H, Ur Epithelial Cells None seen, Urine Bacteria 3+ H, Urine Culture Comments Culture to follow Discharge Location: [facility] Disposition: [facility] Condition: Stable Level of Care: SNF Discharge Activity: Activity as tolerated Discharge Diet: Resume usual diet Group Home Therapy: Physicial Therapy, Occupation Therapy Referrals: Wiley Monroy DO [Primary Care Provider] - Problem Oriented Discharge Instructions to Patient/Family: Confusion, Urinary Tract Infection, Adult, [id number] Additional Patient Instructions (free text): [facility] resident. Prescriptions (Any new or edited meds): cefTRIAXone SODIUM [Rocephin] 1 gm IM DAILY #4 vial Complete Home Medications List: Complete Home Medication List: Calcium Carbonate [Tums] 500 mg PO TID 09/13/14 Cyanocobalamin (Vitamin B-12) [B-12] 1,000 mcg PO DAILY 09/13/14 Multivitamin [Multi-Vitamin Daily] 1 each PO DAILY 09/13/14 Simvastatin [Zocor] 40 mg PO HS 09/13/14 Thiamine HCl [B-1] 100 mg PO DAILY 09/13/14 Pantoprazole Sodium [Protonix] 40 mg PO DAILY 12/04/14 Lisinopril [Zestril] 20 mg PO DAILY #30 tablet 05/17/15 0.9 % Sodium Chloride [Nasal Mist] 2 spray NS QID 08/17/15 Cetirizine HCl [Wal-Zyr] 10 mg PO Q12H 08/17/15 Furosemide [Lasix] 40 mg PO MOWEFR 08/17/15 Propranolol HCl [Inderal] 20 mg PO TID 08/17/15 Topiramate [Topamax] 100 mg PO BID 08/17/15 Lancets [Fingerstix] [address] [facility] #1 each 08/22/15 Blood Sugar Diagnostic [Test Strips] 1 each [facility] 12/28/15 Cranberry Fruit Concentrate [Cranberry] 450 mg PO DAILY 12/28/15 Cyclosporine [Restasis] 1 each EACHEYE BID 12/28/15 Insulin Aspart [Novolog] See Protocol [facility] 12/28/15 Levothyroxine Sodium [Synthroid] 300 mcg PO DAILY 12/28/15 Aspirin [Marcelo Chewable Aspirin] 81 mg PO DAILY 04/10/17 Gabapentin 300 mg PO TID 04/10/17 traMADol HCL [Tramadol HCl] 50 mg PO Q8H PRN 04/14/17 Acetaminophen 650 mg PO QID PRN 10/08/17 Insulin Detemir [Levemir] 120 unit SQ BID 10/08/17 Diclofenac Sodium [Voltaren] 100 gm TP DAILY PRN 10/20/17 Lurasidone HCl [Latuda] 60 mg PO BID 10/20/17 Nystatin [Mycostatin Powder] 15 gm TP BID PRN 10/20/17 Divalproex Sodium [Depakote ER] 1,500 mg PO HS 10/21/17 Docusate Sodium [Colace] 100 mg PO HS 10/25/17 Polyethylene Glycol 3350 [Miralax] 17 gm PO DAILY PRN 11/14/17 cefTRIAXone SODIUM [Rocephin] 1 gm IM DAILY #4 vial 11/16/17 <Pat Youngblood - Last Filed: 11/16/17 19:38> (1) UTI (urinary tract infection) Problem: Acute (2) Hypoglycemia Problem: Resolved (3) Altered mental status Problem: Resolved Qualifiers: Altered mental status type: disorientation Qualified Code(s): R41.0 - Disorientation, unspecified (4) COPD (chronic obstructive pulmonary disease) Problem: Chronic (5) GERD (gastroesophageal reflux disease) Problem: Chronic Qualifiers: (6) Hypertension Problem: Chronic Qualifiers: Hypertension type: essential hypertension Qualified Code(s): I10 - Essential (primary) hypertension (7) Morbid obesity Problem: Chronic (8) Osteoarthritis Problem: Chronic (9) Diabetes Problem: Chronic Qualifiers: Diabetes mellitus type: type 2 Description of Stay: Mrs. Vee is 72-yr-old [place] pt of Dr. Monroy who is a assisted care resident at the [facility] [place], who was brought to the ED on 11/14/17 due to AMS changes & Fevers. Her PMH is significant for Arthtitis, CAD, COPD, Crohn' s disease, DM II, Dementia, GERD, HTN, HLD, Hypothyroidism. At the ED, head CT obtained did not have any acute findings except for acute vs chronic sinusitis. The CXR also did not indicate consolidation/infiltrates to suggest Pneumonia. Her CBC showed WBC--> 7,600 with 3 bands otherwise all other labs were unremarkable. V.S were stable. UA showed presence of UTI and since there were no signs of sepsis, and given allergy to numerous antibitotics, it was felt reasonable to treat her UTI based on C/S from previous UTI, until urine culture from present admission results. During the observation period, she remained afebrile. She received IVF hydration. She was hypoglycemic with BS in the 60s at supper and 90 at hs on 11/14 and her insulins were held. Her blood sugar following this was in the upper 180s-200s and her insulin was restarted. She was determined to be a stable condition to be discharge back to the . Procedures Performed: none Results and Findings: Pending Mircobiology Results 11/14/17 13:13 Blood Blood Culture - Preliminary NO GROWTH 24 HOURS 11/14/17 13:13 Blood Blood Culture - Preliminary NO GROWTH 24 HOURS 11/14/17 13:25 Urine,Catheterized Urine Culture - Preliminary No Growth Lab Pending Results 11/14/17 12:55: WBC 7.6, RBC 3.26 L, Hgb 11.1 L, Hct 34.8 L, MCV 106.7 H, MCH 34.0 H, MCHC 31.9 L, RDW 14.1 H, Plt Count 272, MPV 9.9, Neutrophils % (Manual) 42, Band Neuts % (Manual) 3 H, Lymphocytes % (Manual) 36, Monocytes % (Manual) 19 H, Neutrophils # (Manual) 3.2, Lymphocytes # (Manual) 2.7, Monocytes # ( Manual) 1.4 H, Platelet Estimate Normal, Macrocytosis 1+ 11/14/17 12:55: Sodium 138, Plasma Sodium 138, Potassium 4.4, Chloride 101, Carbon Dioxide 28.6, Anion Gap 12.8, BUN 15, Creatinine 1.39, Est GFR (Non-Af Amer) 40 L, BUN/Creatinine Ratio 10.8, Random Glucose 113 H, Calcium 9.4, Calcium Adj for Albumin 10.4 H, Total Bilirubin 0.3, AST 12, ALT 16 L, Alkaline Phosphatase 98, C-Reactive Prot, Quant 5.0 H, Total Protein 7.6, Albumin 2.4 L 11/14/17 12:55: Lactic Acid, Venous 1.8 11/14/17 12:55: Procalcitonin 0.10 11/14/17 13:10: pCO2 34.0, pO2 80.5 L, HCO3 23.4, Total CO2 24.4 H, Base Excess -0.1, ABG pH 7.46 H, ABG O2 Sat (Measured) 96.5 11/14/17 13:25: Urine Color Yellow, Urine Appearance Cloudy, Urine pH 8.0 H, Ur Specific [place] 1.015, Urine Protein 15 H, Urine Glucose (UA) Negative, Urine Ketones Negative, Urine Blood 5 H, Urine Nitrate Negative, Urine Bilirubin Negative, Prot Sulfosalicylic Acd 1+, Urine Urobilinogen Normal, Ur Leukocyte Esterase 500 H, Urine RBC 0-5, Urine WBC >50 H, Ur Epithelial Cells None seen, Urine Bacteria 3+ H, Urine Culture Comments Culture to follow Discharge Location: [facility] Discharge Activity: Activity as tolerated
[2017-11-16] MEDS: LEVOTHYROXINE SODIUM 100 MCG TABLET PO SCH (07:00)
[2017-11-16] MEDS: INSULIN LISPRO 100 UNITS/ML VIAL SC SCH ×2 (07:02→12:17)
[2017-11-16] MEDS ORDERED: ASPIRIN 81 MG TAB.CHEW PO SCH (09:00)
[2017-11-16] MEDS ORDERED: FUROSEMIDE 40 MG TABLET PO SCH (09:00)
[2017-11-16] MEDS: PROPRANOLOL HCL 20 MG TABLET PO SCH ×2 (09:19→12:50)
[2017-11-16] MEDS: LURASIDONE HCL 80 MG TABLET PO SCH (09:20)
[2017-11-16] MEDS: GABAPENTIN 300 MG CAPSULE PO SCH ×2 (09:20→12:50)
[2017-11-16] MEDS: PANTOPRAZOLE SODIUM 40 MG TABLET.EC PO SCH (09:20)
[2017-11-16] MEDS: NITROFURANTOIN/NITROFURAN MAC 100 MG CAPSULE PO SCH (09:20)
[2017-11-16] MEDS: CYANOCOBALAMIN 1,000 MCG TABLET PO SCH (09:21)
[2017-11-16] MEDS: LISINOPRIL 20 MG TABLET PO SCH (09:21)
[2017-11-16] MEDS: TOPIRAMATE 50 MG TABLET PO SCH (09:21)
[2017-11-16] MEDS: CALCIUM CARBONATE 500 MG TAB.CHEW PO SCH ×2 (09:21→12:50)
[2017-11-16] MEDS: SODIUM CHLORIDE 45 SPRAY BTL NS SCH ×2 (09:21→12:50)
[2017-11-16] MEDS: INSULIN DETEMIR 100 UNITS/ML VIAL SC SCH (09:27)
[2017-11-16] MEDS: THIAMINE HCL 100 MG TABLET PO SCH (10:22)
[2017-11-16 15:43] VITALS: BP 141/54
== END 2017-11-16 14:00 ==
LOC: MS 12:38 → ER 12:38
PROVIDERS: ADMIT Family Medicine; ATTEND Family Medicine
CPT/HCPCS: 36415; 36600; 70450; 71010; 71045; 80053; 81001; 82803; 83605; 84145; 85025; 86140; 87040; 87081; 87086; 87106; 93005; 94762; 96361; 96372; 96374; 99285; G0378

== ENCOUNTER 2018-09-03 15:35 | Observation (INO) ==
[2018-09-03 16:35] LABS: Hematocrit 43.6 % (37.0-47.0); Hemoglobin 13.9 gm/dL (12.5-16.0); Mean Cell Volume 104.1 fl (78-100); Mean Corpuscular Hemoglobin 33.2 pg (27-31); Mean Corpuscular Hgb Conc 31.9 g/dl (32-36); Mean Platelet Volume 10.1 fl (8-12.5); Platelet Count 212 K/mm3 (150-450); Red Blood Count 4.19 M/mm3 (4.2-5.4); Red Cell Distribution Width 13.3 % (11.5-14.0); White Blood Count 14.2 K/mm3 (4.0-10.5)
[2018-09-03 16:37] LABS: Total Cells Counted 100
--- NOTE | 2018-09-03 16:41 | ERNOTE ---
Neuro HPI ER Record Presenting Symptoms: other - Altered mental status Time Seen by Provider: 09/03/18 16:03 Source: EMS, long-term records Exam Limitations: clinical condition Immunizations: IMMUNIZATION HX Immunizations Up to Date Yes History of Influenza Vaccine Yes Hx Pneumococcal Vaccination Yes Allergies/Adverse Reactions: Allergies Allergy/AdvReac Type Severity Reaction Status Date / Time azithromycin Allergy Intermediate Verified 08/03/18 11:25 baclofen Allergy Intermediate Verified 08/03/18 11:25 ciprofloxacin [From Cipro] Allergy Intermediate Verified 08/03/18 11:25 ciprofloxacin HCl Allergy Intermediate Verified 08/03/18 11:25 [From Cipro] clindamycin Allergy Intermediate Verified 08/03/18 11:25 phenobarbital Allergy Intermediate Verified 08/03/18 11:25 Sulfa (Sulfonamide Allergy Intermediate Verified 08/03/18 11:25 Antibiotics) [Sulfa(Sulfonamide Antibiotics)] tizanidine [Tizanidine] Allergy Intermediate Verified 08/03/18 11:25 verapamil [Verapamil] Allergy Intermediate Verified 08/03/18 11:25 cephalexin monohydrate Allergy Verified 08/03/18 11:25 [From Keflex] levofloxacin [From Levaquin] Allergy Verified 08/03/18 11:25 mesalamine [From Pentasa] Allergy Verified 08/03/18 11:25 Neuromuscular Blockers, Allergy Verified 08/03/18 11:25 Steroidal Home Medications: HOME MEDICATIONS Calcium Carbonate [Tums] 500 mg PO TID 09/13/14 [Last Taken 10/24/17 11:00] Cyanocobalamin (Vitamin B-12) [B-12] 1,000 mcg PO DAILY 09/13/14 [Last Taken 10/24/17 08:00] Simvastatin [Zocor] 40 mg PO HS 09/13/14 [Last Taken 10/23/17 20:00] Thiamine HCl [B-1] 100 mg PO DAILY 09/13/14 [Last Taken 10/24/17 07:00] Pantoprazole Sodium [Protonix] 40 mg PO DAILY 12/04/14 [Last Taken 10/24/17 07:00] Lisinopril [Zestril] 20 mg PO DAILY #30 tab 05/17/15 [Last Taken 10/24/17 07:00] 0.9 % Sodium Chloride [Nasal Mist] 2 spray NS QID 08/17/15 [Last Taken 10/24/17 11:00] Furosemide [Lasix] 40 mg PO MOWEFR 08/17/15 [Last Taken 10/23/17 07:00] Propranolol HCl [Inderal] 20 mg PO 0700,1100,1900 08/17/15 [Last Taken 10/24/17 07:00] Lancets [Fingerstix] 1 ea [facility] #1 ea 08/22/15 [Last Taken 10/24/17 11:00] Blood Sugar Diagnostic [Test Strips] 1 ea [facility] 12/28/15 [Last Taken 12/28/15] Cyclosporine [Restasis] 1 ea EACHEYE BID 12/28/15 [Last Taken 10/24/17 07:00] Insulin Aspart [Novolog] See Protocol [facility] 12/28/15 [Last Taken 10/24/17 11:00] Levothyroxine Sodium [Synthroid] 300 mcg PO DAILY 12/28/15 [Last Taken 10/24/17 07:00] Aspirin [Marcelo Chewable Aspirin] 81 mg PO DAILY 04/10/17 [Last Taken 10/24/17 07:00] Gabapentin 300 mg PO 0700,1100,1900 04/10/17 [Last Taken 10/24/17 11:00] traMADol HCL [Tramadol HCl] 50 mg PO Q8H PRN 04/14/17 [Last Taken Unknown] Acetaminophen 650 mg PO BID PRN 10/08/17 [Last Taken Unknown] Lurasidone HCl [Latuda] 60 mg PO BID 10/20/17 [Last Taken 10/24/17 07:00] Divalproex Sodium [Depakote ER] 1,500 mg PO HS 10/21/17 [Last Taken 10/23/17 19:30] Docusate Sodium [Colace] 100 mg PO HS 10/25/17 [Last Taken 10/23/17 19:30] Polyethylene Glycol 3350 [Miralax] 17 gm PO DAILY PRN 11/14/17 [Last Taken Unknown] acetaminophen 325 mg tablet 650 mg PO QID tab 06/01/18 [Last Taken Unknown] carbamide peroxide 6.5 % ear drops 10 drp OT DAILY PRN ml 06/01/18 [Last Taken Unknown] cetirizine 10 mg capsule 10 mg PO DAILY cap 06/01/18 [Last Taken Unknown] insulin detemir (U-100) 100 unit/mL subcutaneous solution 60 unit SUBCUT BID ml 06/01/18 [Last Taken Unknown] metformin 500 mg tablet 500 mg PO BID #60 tab 07/07/18 [Last Taken Unknown] bisacodyl 10 mg rectal suppository 10 mg AL DAILY PRN 07/16/18 [Last Taken Unknown] Cranberry 500 mg PO DAILY 09/03/18 [Last Taken Unknown] Diclofenac Sodium [Diclofenac 1% Topical Gel] 1 appl TOPICAL DAILY PRN 09/03/18 [Last Taken Unknown] Hydrophilic Ointment [Aquaphilic Ointment] 1 appl TOPICAL DAILY PRN 09/03/18 [Last Taken Unknown] Magnesium Hydroxide [Milk Of Magnesia] 30 ml PO DAILY PRN 09/03/18 [Last Taken Unknown] Multivitamin [One-Daily Multi-Vitamin] 1 ea PO DAILY 09/03/18 [Last Taken Unknown] Nystatin [Mycostatin Powder] 1 appl TOPICAL BID PRN 09/03/18 [Last Taken Unknown] Topiramate [Topamax] 100 mg PO BID 09/03/18 [Last Taken Unknown] cefuroxime axetil 500 mg tablet 500 mg PO BID 5 Days #10 tab 09/03/18 [Last Taken Unknown] - History of Present Illness Narrative: Given the patient's underlying dementia is very difficult to get history from her, she is also not responding very well. She was well enough at the long-term for them to use a Chris lift to get her into the van. She does not want to answer any questions while in the ED however. Onset: other - unsure per the long-term records Severity: moderate - Character of Deficits Additional Deficits: Present: weakness Baseline Cognition: Present: poor alertness Associated Symptoms: Denies: fever/chills, sweating Review of Systems - Review of Systems Constitutional: Present: See HPI EYE: Present: no symptoms reported ENT: Present: no symptoms reported Respiratory: Present: no symptoms reported Cardiology: Present: no symptoms reported Gastrointestinal/Abdominal: Present: no symptoms reported Genitourinary: Present: no symptoms reported Musculoskeletal: Present: no symptoms reported Skin: Present: no symptoms reported Neurological: Present: other - Chronic dementia Endocrine: Present: no symptoms reported Hematologic/Lymphatic: Present: no symptoms reported Psych: Present: no symptoms reported Medical History (Updated 04/15/18 @ 16:52 by Henrietta Amor RN) Chronic pain (Chronic) Osteoarthritis (Chronic) Morbid obesity (Chronic) Crohns disease (Chronic) Dementia (Chronic) COPD (chronic obstructive pulmonary disease) (Chronic) GERD (gastroesophageal reflux disease) (Chronic) Type 2 diabetes mellitus (Chronic) Hypertension (Chronic) Diabetes (Chronic) Degenerative joint disease involving multiple joints on both sides of body (Chronic) Arthritis Bipolar 1 disorder COPD (chronic obstructive pulmonary disease) Cervicalgia Chronic pain Coronary artery disease Crohns disease DVT (deep venous thrombosis) Diabetes mellitus Diabetic neuropathy Edema Fusion of spine, cervical region 1993, 2005, 2006 GERD (gastroesophageal reflux disease) Hyperlipidemia Hypertension Hypothyroidism Major depressive disorder Migraine Muscle weakness Palmar 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 Dupont and Dr. Pelaez-Gastritis History of hip replacement Onset Date: ~10/2004 right Hx of cholecystectomy Hx of colonoscopy Onset Date: ~2005 Dr. Dupont, 11/2005 Renard-Hyperplastic Family History: Family History (Last Reviewed 08/03/18 @ 11:32 by SIDNEY Bustamante) Mother Diabetes Heart disease Hypertension Brother Heart disease Father Heart disease Grandfather Myocardial infarction Grandmother Colon cancer Social History: Preferred Language Arabic Do you have any buddhist or No cultural preference? Smoking Status Smoker, status unknown Have you smoked in the past 12 No months Do you dip or chew tobacco No Abuse History No History of abuse Psych History Hx of Bipolar Disorder,Currently on Meds Alcohol Use none Drug Use none (Last Reviewed 08/03/18 @ 11:32 by SIDNEY Bustamante) No Social History Section defined Physical Exam - Physical Exam General Appearance: Present: obese, other - Does not respond to questioning Head Exam: Present: normal inspection, no evidence of injury Ears, Nose, Throat: Absent: abnormal TM (R), abnormal TM (L) Neck: Present: normal inspection Respiratory: Present: no respiratory distress, normal breath sounds Cardiovascular/Chest: Present: regular rate, rhythm, normal peripheral pulses Gastrointestinal/Abdominal: Present: normal bowel sounds, nondistended, soft, no organomegaly Rectal Exam: Present: deferred Pelvic Exam: Present: deferred Extremity Exam: Present: extremity edema - Chronic Neurological Exam: Present: disoriented to person, disoriented to time, disoriented to place, disoriented to situation Skin Exam: Present: normal color, warm/dry Lymphatic Exam: Present: no adenopathy Progress - Results and Orders Patient's Lab Results:: I have reviewed the patient's lab results. - Vital Signs Patient's Vital Signs:: I have reviewed the patient's vital signs. Vital Signs: Vital Signs 09/03/18 16:05 Temperature 36.8 C Pulse Rate 78 Respiratory Rate 19 Blood Pressure 189/61 H O2 Sat by Pulse Oximetry 95 - EKG EKG #1 EKG: other - NSR - X-Ray X-Ray #1 X-Ray: chest Interpretation: Reviewed by me - CT/Ultrasound CT/Ultrasound Narrative: CT of the head reviewed by me - Progress/Reassessment Chief Complaint: Altered Mental Status Plan - Plan Plan: I discussed the case with Dr. Monroy, the on-call physician, and patient will be admitted for IV antibiotics. She is likely going to be an observation admit, but we will see how she does throughout the night. Departure Clinical Impression: Lactic acidosis Urinary tract infection Qualifiers: Urinary tract infection type: site unspecified Hematuria presence: without hematuria Qualified Code(s): N39.0 - Urinary tract infection, site not specified Dementia Qualifiers: Dementia type: vascular dementia Dementia behavioral disturbance: without behavioral disturbance Qualified Code(s): F01.50 - Vascular dementia without behavioral disturbance Leucocytosis Qualifiers: Leukocytosis type: other Qualified Code(s): D72.828 - Other elevated white blood cell count - Departure Disposition: Still a patient Condition: Fair Referrals: Henrietta Saunders ARNP [Primary Care Provider] -
[2018-09-03 16:52] LABS: ALT 25 U/L (19-67); AST 25 U/L (0-48); Alkaline Phosphatase * 154 U/L (50-170); Anion Gap 16.6 mmol/L (6.8-13.8); BUN/Creatinine Ratio 14.6 (9.0-21.6); Bilirubin, Total 0.6 mg/dL (0.0-1.1); Blood Urea Nitrogen 25 mg/dL (3-23); Ca. Corrected For Albumin 10.9 mg/dL (8.4-10.2); Calcium * 10.4 mg/dL (7.9-10.9); Carbon Dioxide 26.1 mmol/L (24-32.6); Chloride 100 mmol/L (97-106); Glucose * 230 mg/dL (70-110); Potassium 5.7 mmol/L (3.4-4.6); Sodium 137 mmol/L (132-142); Total Protein 8.6 gm/dL (6.2-8.2); Troponin I Less than 0.017 ng/mL (0.00-0.10)
[2018-09-03] MEDS ORDERED: NORMAL SALINE 1,000 ML IV ONE (16:54)
[2018-09-03 16:59] LABS: Magnesium 2.3 mg/dL (1.2-2.8)
[2018-09-03 17:01] LABS: Band 6 % (0-2.0); Eosinophil 3 % (0-3); Lymphocyte 18 % (20-51); Monocyte 14 % (0-9); Neutrophil 59 % (42-75); Neutrophil # 8.4 K/mm3 (1.3-6.0)
[2018-09-03 17:02] LABS: Platelet Estimate Normal (NORMAL); RBC Morphology Normal (NORMAL)
[2018-09-03 17:06] LABS: Urine Bilirubin 1 mg/dl (NEGATIVE); Urine Ketone Negative (NEGATIVE); Urine Nitrite Negative (NEGATIVE); Urine Protein 30 mg/dL (NEGATIVE); Urine Specific Gravity 1.015 SP.GR. (1.005-1.010); Urine Urobilinogen Normal (NORMAL)
[2018-09-03 17:18] LABS: Urine Appearance Clear (CLEAR); Urine Bacteria 2+; Urine Blood 5 /ul (NEGATIVE); Urine Color Amber; Urine RBC 0-5 /hpf (0-5); Urine WBC 0-5 /hpf (0-5)
[2018-09-03 17:19] LABS: Urine Hyaline Cast 0-5 /LPF; Urine Mucus Few - 1+
[2018-09-03] MEDS: AMPICILLIN SODIUM/SULBACTAM NA 1.5 GM in NORMAL SALINE 100 ML IV SCH ×2 (18:02→23:56)
[2018-09-03] MEDS ORDERED: MAGNESIUM HYDROXIDE 30 ML UDC PO PRN (20:33)
[2018-09-03] MEDS ORDERED: NYSTATIN 15 APPL BTL TP PRN (20:33)
[2018-09-03] MEDS ORDERED: BISACODYL 10 MG SUPP.RECT RC PRN (20:33)
[2018-09-03] MEDS ORDERED: POLYETHYLENE GLYCOL 3350 119 GM BTL PO PRN (20:33)
--- NOTE | 2018-09-03 21:11 | HP ---
Chief Complaint - Chief Complaint Date of Service: 09/03/18 Time of Service: 20:00 Chief Complaint: altered mental status, weakness, hypersomnolence, copd exacerbation History of Present Illness: Meka Vee is a 73-year-old morbidly obese female with advanced dementia. She had become much less responsive at the retirement and had definite altered mental status. She was then brought to the hospital where she was evaluated and subsequently admitted because of an elevated lactic acid, leukocytosis, and obtunded mentation. She has had many pneumonia admissions in the past and has been told by a crane ladle person that she has COPD. On admission she is in no distress but it is very difficult to arouse her and alter her level of consciousness. Her daughter did call her name and contact fully stimulated her and she did awaken her eyes smiled and answered the question how are you with the word good and then went back to sleep and could not be aroused again. She is admitted on Unasyn. The chest x-ray shows very poor lung inflation and so it is difficult to call. It is expected she is has a lot of atelectasis. The CT of her head does not show any acute intracranial process. The laboratory has an elevated white count of 14,300 with a left shift. The lactic acid was initially 2.6 and on repeat is 2.1. The urinalysis has 2+ bacteria and culture is pending. I have spoken with her daughter who is very helpful in providing past medical history information. Medical History (Updated 09/03/18 @ 18:04 by Slava Salcedo DO) Chronic pain (Chronic) Osteoarthritis (Chronic) Morbid obesity (Chronic) Crohns disease (Chronic) Dementia (Chronic) COPD (chronic obstructive pulmonary disease) (Chronic) GERD (gastroesophageal reflux disease) (Chronic) Type 2 diabetes mellitus (Chronic) Hypertension (Chronic) Diabetes (Chronic) Degenerative joint disease involving multiple joints on both sides of body (Chronic) Arthritis Bipolar 1 disorder COPD (chronic obstructive pulmonary disease) Cervicalgia Chronic pain Coronary artery disease Crohns disease DVT (deep venous thrombosis) Diabetes mellitus Diabetic neuropathy Edema Fusion of spine, cervical region 1993, 2005, 2006 GERD (gastroesophageal reflux disease) Hyperlipidemia Hypertension Hypothyroidism Major depressive disorder Migraine Muscle weakness Palmar 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 Dupont and [address]. Pelaez-Gastritis History of hip replacement Onset Date: ~10/2004 right Hx of cholecystectomy Hx of colonoscopy Onset Date: ~2005 Dr. Dupont, 11/2005 Renard-Hyperplastic Family History: Family History (Last Reviewed 08/03/18 @ 11:32 by SIDNEY Bustamante) Mother Diabetes Heart disease Hypertension Brother Heart disease Father Heart disease Grandfather Myocardial infarction Grandmother Colon cancer Social History: Patient Lives/Resources [facility] Utilized Occupation retired Preferred Language Rwandan Do you have any restorationism or Yes: Cheondoism cultural preference? Smoking Status Former smoker Have you smoked in the past 12 No months Do you dip or chew tobacco No Abuse History No History of abuse Psych History Hx of Bipolar Disorder,Currently on Meds Alcohol Use none Drug Use none (Last Reviewed 08/03/18 @ 11:32 by SIDNEY Bustamante) No Social History Section defined Review Of Systems (GEN) - Review of Systems Generalized/Overall Review: Present: Weakness EENTM: Present: No Symptoms Reported Respiratory: Present: Shortness of Breath, Wheezing Cardiac: Present: No Symptoms Reported Abdominal: Present: No Symptoms Reported Genitourinary: Present: No Symptoms Reported Musculoskeletal: Present: No Symptoms Reported Neurological: Present: Weakness, Pre-existing Deficit, Other - Altered mental status Skin: Present: No Symptoms Reported Endocrine: Present: No Symptoms Reported Immunizations: IMMUNIZATION HX Immunizations Up to Date Yes History of Influenza Vaccine Yes Hx Pneumococcal Vaccination Yes Allergies/Adverse Reactions: Allergies Allergy/AdvReac Type Severity Reaction Status Date / Time azithromycin Allergy Intermediate Verified 08/03/18 11:25 baclofen Allergy Intermediate Verified 08/03/18 11:25 ciprofloxacin [From Cipro] Allergy Intermediate Verified 08/03/18 11:25 ciprofloxacin HCl Allergy Intermediate Verified 08/03/18 11:25 [From Cipro] clindamycin Allergy Intermediate Verified 08/03/18 11:25 phenobarbital Allergy Intermediate Verified 08/03/18 11:25 Sulfa (Sulfonamide Allergy Intermediate Verified 08/03/18 11:25 Antibiotics) [Sulfa(Sulfonamide Antibiotics)] tizanidine [Tizanidine] Allergy Intermediate Verified 08/03/18 11:25 verapamil [Verapamil] Allergy Intermediate Verified 08/03/18 11:25 cephalexin monohydrate Allergy Verified 08/03/18 11:25 [From Keflex] levofloxacin [From Levaquin] Allergy Verified 08/03/18 11:25 mesalamine [From Pentasa] Allergy Verified 08/03/18 11:25 Neuromuscular Blockers, Allergy Verified 08/03/18 11:25 Steroidal Home Medications: HOME MEDICATIONS Calcium Carbonate [Tums] 500 mg PO TID 09/13/14 [Last Taken 10/24/17 11:00] Cyanocobalamin (Vitamin B-12) [B-12] 1,000 mcg PO DAILY 09/13/14 [Last Taken 10/24/17 08:00] Simvastatin [Zocor] 40 mg PO HS 09/13/14 [Last Taken 10/23/17 20:00] Thiamine HCl [B-1] 100 mg PO DAILY 09/13/14 [Last Taken 10/24/17 07:00] Pantoprazole Sodium [Protonix] 40 mg PO DAILY 12/04/14 [Last Taken 10/24/17 07:00] Lisinopril [Zestril] 20 mg PO DAILY #30 tab 05/17/15 [Last Taken 10/24/17 07:00] 0.9 % Sodium Chloride [Nasal Mist] 2 spray NS QID 08/17/15 [Last Taken 10/24/17 11:00] Furosemide [Lasix] 40 mg PO MOWEFR 08/17/15 [Last Taken 10/23/17 07:00] Propranolol HCl [Inderal] 20 mg PO 0700,1100,1900 08/17/15 [Last Taken 10/24/17 07:00] Lancets [Fingerstix] 1 ea ACHS #1 ea 08/22/15 [Last Taken 10/24/17 11:00] Blood Sugar Diagnostic [Test Strips] 1 ea ACHS 12/28/15 [Last Taken 12/28/15] Cyclosporine [Restasis] 1 ea EACHEYE BID 12/28/15 [Last Taken 10/24/17 07:00] Insulin Aspart [Novolog] See Protocol SC ACHS 12/28/15 [Last Taken 10/24/17 11:00] Levothyroxine Sodium [Synthroid] 300 mcg PO DAILY 12/28/15 [Last Taken 10/24/17 07:00] Aspirin [Marcelo Chewable Aspirin] 81 mg PO DAILY 04/10/17 [Last Taken 10/24/17 07:00] Gabapentin 300 mg PO 0700,1100,1900 04/10/17 [Last Taken 10/24/17 11:00] traMADol HCL [Tramadol HCl] 50 mg PO Q8H PRN 04/14/17 [Last Taken Unknown] Acetaminophen 650 mg PO BID PRN 10/08/17 [Last Taken Unknown] Lurasidone HCl [Latuda] 60 mg PO BID 10/20/17 [Last Taken 10/24/17 07:00] Divalproex Sodium [Depakote ER] 1,500 mg PO HS 10/21/17 [Last Taken 10/23/17 19:30] Docusate Sodium [Colace] 100 mg PO HS 10/25/17 [Last Taken 10/23/17 19:30] Polyethylene Glycol 3350 [Miralax] 17 gm PO DAILY PRN 11/14/17 [Last Taken Unknown] acetaminophen 325 mg tablet 650 mg PO QID tab 06/01/18 [Last Taken Unknown] carbamide peroxide 6.5 % ear drops 10 drp OT DAILY PRN ml 06/01/18 [Last Taken Unknown] cetirizine 10 mg capsule 10 mg PO DAILY cap 06/01/18 [Last Taken Unknown] insulin detemir (U-100) 100 unit/mL subcutaneous solution 60 unit SUBCUT BID ml 06/01/18 [Last Taken Unknown] metformin 500 mg tablet 500 mg PO BID #60 tab 07/07/18 [Last Taken Unknown] bisacodyl 10 mg rectal suppository 10 mg CO DAILY PRN 07/16/18 [Last Taken U nknown] Cranberry 500 mg PO DAILY 09/03/18 [Last Taken Unknown] Diclofenac Sodium [Diclofenac 1% Topical Gel] 1 appl TOPICAL DAILY PRN 09/03/18 [Last Taken Unknown] Hydrophilic Ointment [Aquaphilic Ointment] 1 appl TOPICAL DAILY PRN 09/03/18 [Last Taken Unknown] Magnesium Hydroxide [Milk Of Magnesia] 30 ml PO DAILY PRN 09/03/18 [Last Taken Unknown] Multivitamin [One-Daily Multi-Vitamin] 1 ea PO DAILY 09/03/18 [Last Taken Unknown] Nystatin [Mycostatin Powder] 1 appl TOPICAL BID PRN 09/03/18 [Last Taken Unknown] Topiramate [Topamax] 100 mg PO BID 09/03/18 [Last Taken Unknown] cefuroxime axetil 500 mg tablet 500 mg PO BID 5 Days #10 tab 09/03/18 [Last Taken Unknown] Exam - Exam Vital Signs: Vital Signs - Last Taken Temp 38.5 C H 09/03/18 19:37 Pulse 87 09/03/18 19:37 Resp 22 H 09/03/18 19:37 BP 136/51 09/03/18 19:37 Pulse Ox 93 09/03/18 19:37 Constitutional: Present: Obtunded, Elderly, Morbidly obese ENT Exam: Present: normal ENT inspection Eye Exam: bilateral eye: normal inspection, PERRL, EOMI Neck: Present: non-tender Back Exam: Present: normal inspection, no CVA tenderness, no vertebral tenderness Breasts: Present: Exam deferred Respiratory: Present: chest non-tender, decreased breath sounds, rhonchi, wheezing Cardiovascular/Chest: Present: normal peripheral pulses, regular rate, rhythm, no chest tenderness, no edema, no gallop, no JVD, no murmur, no rub Peripheral Pulses: carotid (R): 2+, carotid (L): 2+, radial (R): 2+, radial (L): 2+ Abdomen: Present: Normal bowel sounds, soft, nontender, nondistended, no rebound tenderness, no hepatospenomegaly, no masses, obese /Rectal: Present: Exam deferred Extremity: Present: normal range of motion, non-tender, normal inspection, other - Dropped feet Skin Exam: Present: normal color, warm/dry, no cyanosis Lymphatic: Present: no adenopathy Neurologic: Present: other - Obtunded. Exam is difficult. Appearance: Present: appropriate appearance, neat Eye contact: Present: other - Unable to follow commands Thoughts: Present: incoherent Diagnostic Studies: Abnormal Lab Results 09/03/18 09/03/18 09/03/18 Range/Units 16:30 16:30 16:30 WBC 14.2 H D (4.0-10.5) K/mm3 RBC 4.19 L (4.2-5.4) M/mm3 MCV 104.1 H (78-100) fl MCH 33.2 H (27-31) pg MCHC 31.9 L (32-36) g/dl Band Neuts % (Manual) 6 H (0-2.0) % Lymphocytes % (Manual) 18 L (20-51) % Monocytes % (Manual) 14 H (0-9) % Neutrophils # (Manual) 8.4 H (1.3-6.0) K/mm3 Monocytes # (Manual) 2.0 H (0.0-1.0) k/mm3 Potassium 5.7 H D (3.4-4.6) mmol/L Anion Gap 16.6 H (6.8-13.8) mmol/L BUN 25 H (3-23) mg/dL Creatinine 1.71 H (0.4-1.4) mg/dL Est GFR (Non-Af Amer) 31 L D (60-130) mL/min Random Glucose 230 H D (70-110) mg/dL Lactic Acid, Venous 2.9 H* (0.4-2.0) mmol/L Calcium Adj for Albumin 10.9 H (8.4-10.2) mg/dL Total Protein 8.6 H (6.2-8.2) gm/dL Albumin 3.0 L (3.4-5.0) gm/dl Urine Protein (NEGATIVE) mg/dL Urine Blood (NEGATIVE) /ul Urine Bilirubin (NEGATIVE) mg/dl Prot Sulfosalicylic Acd (0) mg/dL Ur Leukocyte Esterase (NEGATIVE) /ul Urine Bacteria (NONE) Hyaline Casts (NONE) /LPF Urine Mucus (NONE) 09/03/18 09/03/18 Range/Units 16:46 19:30 WBC (4.0-10.5) K/mm3 RBC (4.2-5.4) M/mm3 MCV (78-100) fl MCH (27-31) pg MCHC (32-36) g/dl Band Neuts % (Manual) (0-2.0) % Lymphocytes % (Manual) (20-51) % Monocytes % (Manual) (0-9) % Neutrophils # (Manual) (1.3-6.0) K/mm3 Monocytes # (Manual) (0.0-1.0) k/mm3 Potassium (3.4-4.6) mmol/L Anion Gap (6.8-13.8) mmol/L BUN (3-23) mg/dL Creatinine (0.4-1.4) mg/dL Est GFR (Non-Af Amer) (60-130) mL/min Random Glucose (70-110) mg/dL Lactic Acid, Venous 2.1 H (0.4-2.0) mmol/L Calcium Adj for Albumin (8.4-10.2) mg/dL Total Protein (6.2-8.2) gm/dL Albumin (3.4-5.0) gm/dl Urine Protein 30 H (NEGATIVE) mg/dL Urine Blood 5 H (NEGATIVE) /ul Urine Bilirubin 1 H (NEGATIVE) mg/dl Prot Sulfosalicylic Acd 2+ H (0) mg/dL Ur Leukocyte Esterase 75 H (NEGATIVE) /ul Urine Bacteria 2+ H (NONE) Hyaline Casts 0-5 H (NONE) /LPF Urine Mucus Few - 1+ H (NONE) Laboratory Results WBC 14.2 K/mm3 (4.0-10.5) H D 09/03/18 16:30 RBC 4.19 M/mm3 (4.2-5.4) L 09/03/18 16:30 Hgb 13.9 gm/dL (12.5-16.0) 09/03/18 16:30 Hct 43.6 % (37.0-47.0) 09/03/18 16:30 MCV 104.1 fl (78-100) H 09/03/18 16:30 MCH 33.2 pg (27-31) H 09/03/18 16:30 MCHC 31.9 g/dl (32-36) L 09/03/18 16:30 RDW 13.3 % (11.5-14.0) 09/03/18 16:30 Plt Count 212 K/mm3 (150-450) 09/03/18 16:30 MPV 10.1 fl (8-12.5) 09/03/18 16:30 59 % (42-75) 09/03/18 16:30 Band Neuts % (Manual) 6 % (0-2.0) H 09/03/18 16:30 18 % (20-51) L 09/03/18 16:30 14 % (0-9) H 09/03/18 16:30 3 % (0-3) 09/03/18 16:30 8.4 K/mm3 (1.3-6.0) H 09/03/18 16:30 2.6 k/mm3 (1.5-3.5) 09/03/18 16:30 2.0 k/mm3 (0.0-1.0) H 09/03/18 16:30 0.4 k/mm3 (0.0-0.7) 09/03/18 16:30 Normal (NORMAL) 09/03/18 16:30 RBC Morphology Normal (NORMAL) 09/03/18 16:30 Sodium 137 mmol/L (132-142) 09/03/18 16:30 139 mmol/L (130-142) 09/03/18 16:30 Potassium 5.7 mmol/L (3.4-4.6) H D 09/03/18 16:30 Chloride 100 mmol/L (97-106) 09/03/18 16:30 Carbon Dioxide 26.1 mmol/L (24-32.6) 09/03/18 16:30 16.6 mmol/L (6.8-13.8) H 09/03/18 16:30 BUN 25 mg/dL (3-23) H 09/03/18 16:30 1.71 mg/dL (0.4-1.4) H 09/03/18 16:30 Est GFR (Non-Af Amer) 31 mL/min (60-130) L D 09/03/18 16:30 14.6 (9.0-21.6) 09/03/18 16:30 230 mg/dL (70-110) H D 09/03/18 16:30 2.1 mmol/L (0.4-2.0) H 09/03/18 19:30 Calcium 10.4 mg/dL (7.9-10.9) 09/03/18 16:30 Calcium Adj for Albumin 10.9 mg/dL (8.4-10.2) H 09/03/18 16:30 Magnesium 2.3 mg/dL (1.2-2.8) 09/03/18 16:30 0.6 mg/dL (0.0-1.1) 09/03/18 16:30 AST 25 U/L (0-48) 09/03/18 16:30 ALT 25 U/L (19-67) 09/03/18 16:30 154 U/L (50-170) 09/03/18 16:30 29.0 mcmol/L (11-35) 09/03/18 16:30 Less than 0.017 ng/mL (0.00-0.10) 09/03/18 16:30 8.6 gm/dL (6.2-8.2) H 09/03/18 16:30 3.0 gm/dl (3.4-5.0) L 09/03/18 16:30 [place] 09/03/18 16:46 Clear (CLEAR) 09/03/18 16:46 6.0 pH (5.0-7.0) 09/03/18 16:46 Ur Specific [place] 1.015 SP.GR. (1.005-1.010) 09/03/18 16:46 30 mg/dL (NEGATIVE) H 09/03/18 16:46 Negative mg/dL (NEGATIVE) 09/03/18 16:46 Negative mg/dL (NEGATIVE) 09/03/18 16:46 5 /ul (NEGATIVE) H 09/03/18 16:46 Negative (NEGATIVE) 09/03/18 16:46 1 mg/dl (NEGATIVE) H 09/03/18 16:46 Negative (NEGATIVE) 09/03/18 16:46 Prot Sulfosalicylic Acd 2+ mg/dL (0) H 09/03/18 16:46 Normal EU/dl (NORMAL) 09/03/18 16:46 Ur Leukocyte Esterase 75 /ul (NEGATIVE) H 09/03/18 16:46 0-5 /hpf (0-5) 09/03/18 16:46 0-5 /hpf (0-5) 09/03/18 16:46 Ur Epithelial Cells 0-5 /hpf (0-5) 09/03/18 16:46 2+ (NONE) H 09/03/18 16:46 Hyaline Casts 0-5 /LPF (NONE) H 09/03/18 16:46 Few - 1+ (NONE) H 09/03/18 16:46 Culture to follow 09/03/18 16:46 Assessment/Plan - Narrative Narrative: 1. Continue IV antibiotics 2. Continue monitoring of vital signs and continuous cardiac telemetry 3. Hold all oral medicines until she is awake enough to swallow effectively. 4. Continue oxygen at 2 L nasal cannula to keep O2 sat above 90%. - Assessment/Plan (1) Urinary tract infection Problem: Acute Qualifiers: Urinary tract infection type: acute cystitis (2) Sepsis Problem: Acute Qualifiers: Sepsis type: sepsis due to unspecified organism (3) Pneumonia Problem: Acute Qualifiers: Pneumonia type: due to unspecified organism Lung location: unspecified part of lung (4) Morbid obesity Problem: Chronic (5) Leucocytosis Problem: Acute Qualifiers: Leukocytosis type: other Qualified Code(s): D72.828 - Other elevated white blood cell count (6) Lactic acidosis Problem: Acute (7) Diabetes Problem: Chronic Qualifiers: Diabetes mellitus type: type 2 Diabetes mellitus penitentiary insulin use: with filler leaf cutter long use Diabetes mellitus complication status: with unspecified complications Qualified Code(s): E11.8 - Type 2 diabetes mellitus with unspecified complications; Z79.4 - [facility] (current) use of insulin
[2018-09-03] MEDS ORDERED: SODIUM CHLORIDE 45 SPRAY BTL NS SCH (21:14)
[2018-09-03] MEDS: BLOOD SUGAR DIAGNOSTIC 1 EACH STRIP MC SCH (21:20)
[2018-09-03] MEDS: ENOXAPARIN SODIUM 40 MG/0.4 ML SYRG SC SCH (21:39)
[2018-09-03] MEDS: INSULIN DETEMIR 100 UNITS/ML VIAL SC SCH (21:40)
[2018-09-03] MEDS: metFORMIN HCL 500 MG TABLET PO SCH (21:50)
[2018-09-03] MEDS: ACETAMINOPHEN 325 MG TABLET PO SCH (21:50)
[2018-09-03] MEDS: DOCUSATE SODIUM 100 MG CAPSULE PO SCH (21:50)
[2018-09-03] MEDS: DIVALPROEX SODIUM 500 MG TAB.SR.24H PO SCH (21:50)
[2018-09-03] MEDS: TOPIRAMATE 50 MG TABLET PO SCH (21:51)
[2018-09-04] MEDS: AMPICILLIN SODIUM/SULBACTAM NA 1.5 GM in NORMAL SALINE 100 ML IV SCH ×2 (05:20→13:05)
[2018-09-04 06:11] LABS: Hematocrit 35.8 % (37.0-47.0); Hemoglobin 11.4 gm/dL (12.5-16.0); Mean Corpuscular Hemoglobin 33.4 pg (27-31); Mean Corpuscular Hgb Conc 31.8 g/dl (32-36); Mean Platelet Volume 10.5 fl (8-12.5); Platelet Count 152 K/mm3 (150-450); Red Blood Count 3.41 M/mm3 (4.2-5.4); Red Cell Distribution Width 13.3 % (11.5-14.0); White Blood Count 9.2 K/mm3 (4.0-10.5)
[2018-09-04 06:43] LABS: Total Cells Counted 100
[2018-09-04 06:44] LABS: Anion Gap 13.3 mmol/L (6.8-13.8); Calcium * 9.5 mg/dL (7.9-10.9); Carbon Dioxide 26.7 mmol/L (24-32.6)
[2018-09-04 06:52] LABS: Band 1 % (0-2.0); Eosinophil 1 % (0-3); Lymphocyte 45 % (20-51); Monocyte 11 % (0-9); Neutrophil 42 % (42-75); Neutrophil # 3.9 K/mm3 (1.3-6.0)
[2018-09-04 06:53] LABS: Platelet Estimate Normal (NORMAL); RBC Morphology Normal (NORMAL)
[2018-09-04] MEDS: PROPRANOLOL HCL 20 MG TABLET PO SCH ×3 (07:42→19:01)
[2018-09-04] MEDS: PANTOPRAZOLE SODIUM 40 MG TABLET.EC PO SCH (07:42)
[2018-09-04] MEDS: GABAPENTIN 300 MG CAPSULE PO SCH ×3 (07:42→19:05)
[2018-09-04] MEDS: LEVOTHYROXINE SODIUM 100 MCG TABLET PO SCH (07:42)
[2018-09-04] MEDS: BLOOD SUGAR DIAGNOSTIC 1 EACH STRIP MC SCH ×4 (07:54→21:51)
[2018-09-04] MEDS: ASPIRIN 81 MG TAB.CHEW PO SCH (09:21)
[2018-09-04] MEDS: TOPIRAMATE 50 MG TABLET PO SCH ×2 (09:21→20:51)
[2018-09-04] MEDS: LISINOPRIL 20 MG TABLET PO SCH (09:22)
[2018-09-04] MEDS: metFORMIN HCL 500 MG TABLET PO SCH ×2 (09:22→20:51)
[2018-09-04] MEDS: ACETAMINOPHEN 325 MG TABLET PO SCH ×4 (09:22→20:52)
[2018-09-04] MEDS: SODIUM CHLORIDE 45 SPRAY BTL NS SCH ×4 (09:23→20:53)
[2018-09-04] MEDS: INSULIN DETEMIR 100 UNITS/ML VIAL SC SCH ×2 (09:23→21:02)
[2018-09-04] MEDS: LURASIDONE HCL 80 MG TABLET PO SCH ×2 (09:27→20:52)
--- NOTE | 2018-09-04 12:34 | PN ---
Subjective - Date and Time Seen Date: 09/04/18 Time: 09:00 Subjective Narrative: Meka Vee is a 73-year-old admitted through ER last night for decreased altered mental status and urinary tract infection with mild leukocytosis and mild bandemia. She also has chronic renal insufficiency and had a GFR of 31. This morning it is up to 36. I last night on admission she was obtunded and arousable but unable to answer questions. This morning she is sitting up in a chair and has been eating her breakfast with assistance. She is morbidly obese and does not bear weight or stand. They transfer her to the chair using a Chris lift. She is complaining this morning of soreness on her tongue and on inspection there is an aphthous lesion on the lateral left side of the tongue. There is no thrush. She is taking her medicines mixed in applesauce and/or putting. She is swallowing fluids without difficulty. I do not see an admittable diagnosis for regular acute stay but she will have to stay here until Thursday because the [facility] will not have nursing staff to readmit her on the weekend. Objective - Review of Systems Generalized/Overall Review: Reports: Weakness EENTM: Reports: Mouth Pain - Complains of her tongue being very sore, Other Respiratory: Reports: No Symptoms Reported Cardiac: Reports: No Symptoms Reported Abdominal: Reports: No Symptoms Reported Genitourinary Symptoms: Reports: No Symptoms Reported Musculoskeletal Complaints: Reports: No Symptoms Reported Neurological: Reports: No Symptoms Reported Skin: Reports: No Symptoms Reported Endocrine: Reports: No Symptoms Reported Misc: All systems neg except as marked - Vitals Vitals: Last Vital Signs Temp 37.4 C 09/04/18 02:25 Pulse 66 09/04/18 11:57 Resp 16 09/04/18 06:44 BP 117/42 09/04/18 11:57 Pulse Ox 98 09/04/18 06:44 - Abnormal Lab Findings Abnormal Lab Findings: Abnormal Lab Results 09/03/18 09/03/18 09/03/18 Range/Units 16:30 16:30 16:30 WBC 14.2 H D (4.0-10.5) K/mm3 RBC 4.19 L (4.2-5.4) M/mm3 Hgb (12.5-16.0) gm/dL Hct (37.0-47.0) % MCV 104.1 H (78-100) fl MCH 33.2 H (27-31) pg MCHC 31.9 L (32-36) g/dl Band Neuts % (Manual) 6 H (0-2.0) % Lymphocytes % (Manual) 18 L (20-51) % Monocytes % (Manual) 14 H (0-9) % Neutrophils # (Manual) 8.4 H (1.3-6.0) K/mm3 Lymphocytes # (Manual) (1.5-3.5) k/mm3 Monocytes # (Manual) 2.0 H (0.0-1.0) k/mm3 Potassium 5.7 H D (3.4-4.6) mmol/L Anion Gap 16.6 H (6.8-13.8) mmol/L BUN 25 H (3-23) mg/dL Creatinine 1.71 H (0.4-1.4) mg/dL Est GFR (Non-Af Amer) 31 L D (60-130) mL/min Random Glucose 230 H D (70-110) mg/dL Lactic Acid, Venous 2.9 H* (0.4-2.0) mmol/L Calcium Adj for Albumin 10.9 H (8.4-10.2) mg/dL Total Protein 8.6 H (6.2-8.2) gm/dL Albumin 3.0 L (3.4-5.0) gm/dl Urine Protein (NEGATIVE) mg/dL Urine Blood (NEGATIVE) /ul Urine Bilirubin (NEGATIVE) mg/dl Prot Sulfosalicylic Acd (0) mg/dL Ur Leukocyte Esterase (NEGATIVE) /ul Urine Bacteria (NONE) Hyaline Casts (NONE) /LPF Urine Mucus (NONE) 09/03/18 09/03/18 09/03/18 Range/Units 16:46 19:30 23:30 WBC (4.0-10.5) K/mm3 RBC (4.2-5.4) M/mm3 Hgb (12.5-16.0) gm/dL Hct (37.0-47.0) % MCV (78-100) fl MCH (27-31) pg MCHC (32-36) g/dl Band Neuts % (Manual) (0-2.0) % Lymphocytes % (Manual) (20-51) % Monocytes % (Manual) (0-9) % Neutrophils # (Manual) (1.3-6.0) K/mm3 Lymphocytes # (Manual) (1.5-3.5) k/mm3 Monocytes # (Manual) (0.0-1.0) k/mm3 Potassium (3.4-4.6) mmol/L Anion Gap (6.8-13.8) mmol/L BUN (3-23) mg/dL Creatinine (0.4-1.4) mg/dL Est GFR (Non-Af Amer) (60-130) mL/min Random Glucose (70-110) mg/dL Lactic Acid, Venous 2.1 H 2.1 H (0.4-2.0) mmol/L Calcium Adj for Albumin (8.4-10.2) mg/dL Total Protein (6.2-8.2) gm/dL Albumin (3.4-5.0) gm/dl Urine Protein 30 H (NEGATIVE) mg/dL Urine Blood 5 H (NEGATIVE) /ul Urine Bilirubin 1 H (NEGATIVE) mg/dl Prot Sulfosalicylic Acd 2+ H (0) mg/dL Ur Leukocyte Esterase 75 H (NEGATIVE) /ul Urine Bacteria 2+ H (NONE) Hyaline Casts 0-5 H (NONE) /LPF Urine Mucus Few - 1+ H (NONE) 09/04/18 09/04/18 Range/Units 06:00 06:00 WBC (4.0-10.5) K/mm3 RBC 3.41 L (4.2-5.4) M/mm3 Hgb 11.4 L (12.5-16.0) gm/dL Hct 35.8 L (37.0-47.0) % MCV 105.0 H (78-100) fl MCH 33.4 H (27-31) pg MCHC 31.8 L (32-36) g/dl Band Neuts % (Manual) (0-2.0) % Lymphocytes % (Manual) (20-51) % Monocytes % (Manual) 11 H (0-9) % Neutrophils # (Manual) (1.3-6.0) K/mm3 Lymphocytes # (Manual) 4.1 H (1.5-3.5) k/mm3 Monocytes # (Manual) (0.0-1.0) k/mm3 Potassium (3.4-4.6) mmol/L Anion Gap (6.8-13.8) mmol/L BUN 29 H (3-23) mg/dL Creatinine 1.45 H (0.4-1.4) mg/dL Est GFR (Non-Af Amer) 38 L D (60-130) mL/min Random Glucose 114 H D (70-110) mg/dL Lactic Acid, Venous (0.4-2.0) mmol/L Calcium Adj for Albumin (8.4-10.2) mg/dL Total Protein (6.2-8.2) gm/dL Albumin (3.4-5.0) gm/dl Urine Protein (NEGATIVE) mg/dL Urine Blood (NEGATIVE) /ul Urine Bilirubin (NEGATIVE) mg/dl Prot Sulfosalicylic Acd (0) mg/dL Ur Leukocyte Esterase (NEGATIVE) /ul Urine Bacteria (NONE) Hyaline Casts (NONE) /LPF Urine Mucus (NONE) - EKG/Xray Findings EKG: NSR EKG read: Interp. by me Interpretation: Reviewed by me - Exam Constitutional: Present: Alert, Oriented x3, Cooperative, Well developed, Well nourished, No distress ENT Exam: Present: normal ENT inspection, hearing grossly normal, pharynx normal, TMs normal Neck: Present: non-tender, full range of motion Breasts: Present: Exam deferred Respiratory: Present: chest non-tender, lungs clear, normal breath sounds, no respiratory distress, no accessory muscle use Cardiovascular/Chest: Present: normal peripheral pulses, regular rate, rhythm, no chest tenderness, no edema, no gallop, no JVD, no murmur, no rub Abdomen: Present: Normal bowel sounds, soft, nontender, nondistended, no rebound tenderness, no hepatospenomegaly, no masses /Rectal: Present: Exam deferred Extremity: Present: normal range of motion Skin Exam: Present: normal color, warm/dry, no cyanosis Lymphatic: Present: no adenopathy Neurologic: Present: hydraulic jack adjuster II-XII nml as tested, no motor/sensory deficits - However she is not ambulatory and she does not stand to bear weight. Appearance: Present: impaired insight, impaired recent memory, impaired remote memory Eye contact: Present: cooperative, good eye contact, normal speech Thoughts: Present: normal thought pattern, no apparent hallucination Assessment/Plan - Problems/Diagnosis (1) Urinary tract infection Problem: Acute Qualifiers: Urinary tract infection type: acute cystitis (2) Sepsis Problem: Acute Qualifiers: Sepsis type: sepsis due to unspecified organism (3) Pneumonia Problem: Acute Qualifiers: Pneumonia type: due to unspecified organism Lung location: unspecified part of lung (4) Morbid obesity Problem: Chronic (5) Leucocytosis Problem: Acute Qualifiers: Leukocytosis type: leukemoid reaction Qualified Code(s): D72.823 - Leukemoid reaction (6) Lactic acidosis Problem: Acute (7) Diabetes Problem: Chronic Qualifiers: Diabetes mellitus type: type 2 Diabetes mellitus skilled nursing insulin use: with skilled nursing use Diabetes mellitus complication status: with hyperglycemia Qualified Code(s): E11.65 - Type 2 diabetes mellitus with hyperglycemia; Z79.4 - [facility] (current) use of insulin
[2018-09-04] MEDS ORDERED: AMPICILLIN SODIUM/SULBACTAM NA 1.5 GM in NORMAL SALINE 100 ML IV SCH (13:00)
[2018-09-04] MEDS ORDERED: LIDOCAINE HCL 100 APPL SOLUTION MM ONE (13:15)
[2018-09-04] MEDS ORDERED: LIDOCAINE HCL 20 ML UDC MM ONE (13:22)
[2018-09-04] MEDS: AMPICILLIN SODIUM/SULBACTAM NA 3 GM in NORMAL SALINE 100 ML IV SCH (13:25)
[2018-09-04] MEDS ORDERED: LIDOCAINE HCL 20 ML UDC ONE (18:05)
[2018-09-04] MEDS: ENOXAPARIN SODIUM 40 MG/0.4 ML SYRG SC SCH (20:13)
[2018-09-04] MEDS: DOCUSATE SODIUM 100 MG CAPSULE PO SCH ×2 (20:51→21:52)
[2018-09-04] MEDS: DIVALPROEX SODIUM 500 MG TAB.SR.24H PO SCH (20:51)
[2018-09-04] MEDS ORDERED: NITROFURANTOIN/NITROFURAN MAC 100 MG CAPSULE PO SCH (21:00)
[2018-09-05] MEDS: AMPICILLIN SODIUM/SULBACTAM NA 3 GM in NORMAL SALINE 100 ML IV SCH ×3 (00:18→18:32)
[2018-09-05] MEDS: traMADol HCL 50 MG TABLET PO PRN ×3 (06:41→18:46)
[2018-09-05] MEDS: GABAPENTIN 300 MG CAPSULE PO SCH ×3 (06:42→18:46)
[2018-09-05] MEDS: PROPRANOLOL HCL 20 MG TABLET PO SCH ×3 (06:42→18:46)
[2018-09-05] MEDS: PANTOPRAZOLE SODIUM 40 MG TABLET.EC PO SCH (06:42)
[2018-09-05] MEDS: LEVOTHYROXINE SODIUM 100 MCG TABLET PO SCH (06:42)
[2018-09-05] MEDS: BLOOD SUGAR DIAGNOSTIC 1 EACH STRIP MC SCH ×4 (07:24→21:09)
[2018-09-05] MEDS: ACETAMINOPHEN 325 MG TABLET PO SCH ×4 (08:01→20:56)
[2018-09-05] MEDS: TOPIRAMATE 50 MG TABLET PO SCH ×2 (08:02→21:06)
[2018-09-05] MEDS: metFORMIN HCL 500 MG TABLET PO SCH ×2 (08:02→21:07)
[2018-09-05] MEDS: LURASIDONE HCL 80 MG TABLET PO SCH ×2 (08:03→20:58)
[2018-09-05] MEDS: LISINOPRIL 20 MG TABLET PO SCH (08:03)
[2018-09-05] MEDS: INSULIN DETEMIR 100 UNITS/ML VIAL SC SCH ×2 (08:04→21:10)
[2018-09-05] MEDS: ASPIRIN 81 MG TAB.CHEW PO SCH (08:04)
[2018-09-05] MEDS: SODIUM CHLORIDE 45 SPRAY BTL NS SCH ×4 (08:04→21:05)
--- NOTE | 2018-09-05 10:03 | PN ---
Subjective - Date and Time Seen Date: 09/05/18 Time: 08:00 Subjective Narrative: Meka Vee has had an uneventful night and is rested well. She is definitely improved this morning. Her voice is much stronger, her responses are much quicker. I believe her mental status is getting close to her baseline now. Her infection seems to be well controlled now the antibiotics. She does not appear to be in any distress this morning. She says her tongue is still a li ttle sore but better than it was. Objective - Review of Systems Generalized/Overall Review: Reports: Weakness, Malaise - But significantly improved from yesterday EENTM: Reports: No Symptoms Reported Respiratory: Reports: No Symptoms Reported Cardiac: Reports: No Symptoms Reported Abdominal: Reports: No Symptoms Reported Genitourinary Symptoms: Reports: No Symptoms Reported Musculoskeletal Complaints: Reports: No Symptoms Reported Neurological: Reports: Weakness, Pre-existing Deficit - She is chair and bedbound that she cannot bear weight on her legs. She has to be transferred per Chris lift. Skin: Reports: No Symptoms Reported, Dryness Endocrine: Reports: No Symptoms Reported - Vitals Vitals: Last Vital Signs Temp 36.8 C 09/05/18 06:43 Pulse 73 09/05/18 08:03 Resp 18 09/05/18 06:43 BP 151/51 H 09/05/18 08:03 Pulse Ox 95 09/05/18 06:43 - EKG/Xray Findings EKG: NSR EKG read: Interp. by me Interpretation: Reviewed by me - Exam Constitutional: Present: Alert, Oriented x3, Cooperative, Well developed, Well nourished, No distress ENT Exam: Present: normal ENT inspection, hearing grossly normal, pharynx normal, TMs normal Neck: Present: non-tender, full range of motion, supple, normal inspection Breasts: Present: Exam deferred Respiratory: Present: chest non-tender, lungs clear, normal breath sounds, no respiratory distress, no accessory muscle use Cardiovascular/Chest: Present: normal peripheral pulses, regular rate, rhythm, no chest tenderness, no edema, no gallop, no JVD, no murmur, no rub Abdomen: Present: Normal bowel sounds, soft, nontender, nondistended /Rectal: Present: Exam deferred, External genitalia normal Extremity: Present: normal range of motion, non-tender, normal inspection, no pedal edema, no calf tenderness, normal capillary refill Skin Exam: Present: normal color, warm/dry, no cyanosis 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 Continue IV antibiotics until discharge 2. Anticipate discharge tomorrow 3. Morning lab ordered - Problems/Diagnosis (1) Urinary tract infection Problem: Acute Qualifiers: Urinary tract infection type: acute cystitis Hematuria presence: without hematuria Qualified Code(s): N30.00 - Acute cystitis without hematuria (2) Sepsis Problem: Resolved Qualifiers: Sepsis type: sepsis due to unspecified organism (3) Pneumonia Problem: Acute Qualifiers: Pneumonia type: due to unspecified organism Lung location: unspecified part of lung (4) Morbid obesity Problem: Chronic (5) Leucocytosis Problem: Acute Qualifiers: Leukocytosis type: leukemoid reaction Qualified Code(s): D72.823 - Leukemoid reaction (6) Lactic acidosis Problem: Acute (7) Diabetes Problem: Chronic Qualifiers: Diabetes mellitus type: type 2 Diabetes mellitus 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
[2018-09-05] MEDS: ENOXAPARIN SODIUM 40 MG/0.4 ML SYRG SC SCH (20:47)
[2018-09-05] MEDS: AMOX TR/POTASSIUM CLAVULANATE 875 MG TABLET PO SCH (20:49)
[2018-09-05] MEDS: DIVALPROEX SODIUM 500 MG TAB.SR.24H PO SCH (20:53)
[2018-09-05] MEDS: DOCUSATE SODIUM 100 MG CAPSULE PO SCH (21:09)
[2018-09-06] MEDS: traMADol HCL 50 MG TABLET PO PRN (05:21)
[2018-09-06] MEDS: BLOOD SUGAR DIAGNOSTIC 1 EACH STRIP MC SCH ×2 (06:35→11:10)
[2018-09-06 06:38] LABS: Hematocrit 34.1 % (37.0-47.0); Hemoglobin 10.7 gm/dL (12.5-16.0); Mean Cell Volume 104.3 fl (78-100); Mean Corpuscular Hemoglobin 32.7 pg (27-31); Mean Corpuscular Hgb Conc 31.4 g/dl (32-36); Mean Platelet Volume 10.1 fl (8-12.5); Neutrophil # 3.1 K/mm3 (1.3-6.0); Neutrophil % 39.2 % (42-75.0); Platelet Count 176 K/mm3 (150-450); Red Blood Count 3.27 M/mm3 (4.2-5.4); Red Cell Distribution Width 13.2 % (11.5-14.0); White Blood Count 7.8 K/mm3 (4.0-10.5)
[2018-09-06 06:41] LABS: Albumin * 2.4 gm/dl (3.4-5.0); Bilirubin, Total 0.3 mg/dL (0.0-1.1); Ca. Corrected For Albumin 9.6 mg/dL (8.4-10.2); Calcium * 8.6 mg/dL (7.9-10.9); Carbon Dioxide 23.8 mmol/L (24-32.6); Potassium 3.8 mmol/L (3.4-4.6); Total Protein 7.2 gm/dL (6.2-8.2)
[2018-09-06] MEDS: GABAPENTIN 300 MG CAPSULE PO SCH ×2 (06:59→11:08)
[2018-09-06] MEDS: PROPRANOLOL HCL 20 MG TABLET PO SCH ×2 (06:59→11:08)
[2018-09-06] MEDS: LEVOTHYROXINE SODIUM 100 MCG TABLET PO SCH (07:00)
[2018-09-06] MEDS: PANTOPRAZOLE SODIUM 40 MG TABLET.EC PO SCH (07:00)
[2018-09-06 07:08] LABS: BUN/Creatinine Ratio 16.8 (9.0-21.6)
[2018-09-06] MEDS: LURASIDONE HCL 80 MG TABLET PO SCH (08:06)
[2018-09-06] MEDS: ACETAMINOPHEN 325 MG TABLET PO SCH ×2 (08:06→13:13)
[2018-09-06] MEDS: AMOX TR/POTASSIUM CLAVULANATE 875 MG TABLET PO SCH (08:06)
[2018-09-06] MEDS: ASPIRIN 81 MG TAB.CHEW PO SCH (08:06)
[2018-09-06] MEDS: TOPIRAMATE 50 MG TABLET PO SCH (08:06)
[2018-09-06] MEDS: metFORMIN HCL 500 MG TABLET PO SCH (08:07)
[2018-09-06] MEDS: LISINOPRIL 20 MG TABLET PO SCH (08:07)
[2018-09-06] MEDS: SODIUM CHLORIDE 45 SPRAY BTL NS SCH ×2 (08:08→13:15)
[2018-09-06] MEDS: INSULIN DETEMIR 100 UNITS/ML VIAL SC SCH (08:59)
[2018-09-06] MEDS ORDERED: FUROSEMIDE 40 MG TABLET PO SCH (09:00)
--- NOTE | 2018-09-06 10:04 | DS ---
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 Meka had become obtunded and marked decrease in her mental status. She was sent to the ER and found to have a leukocytosis, mildly elevated lactic acid, and fever. The initial urinalysis looks to be infected but the cultures were sterile. She also was not moving very much air in her lungs and had been coughing some and so the thought was also pneumonia but this chest x-ray does not reveal it. She was admitted and treated as if septic and she responded well to therapy but the nidus of infection is still uncertain. Her mental status has improved back to baseline through the weekend. This morning she is in no distress and can be discharged back to the [facility]. Procedures Performed: none Results and Findings: Pending Mircobiology Results 09/03/18 17:10 Blood Blood Culture - Preliminary NO GROWTH AFTER 48 HOURS 09/03/18 16:30 Blood Blood Culture - Preliminary NO GROWTH AFTER 48 HOURS Lab Pending Results 09/03/18 16:30: WBC 14.2 H D, RBC 4.19 L, Hgb 13.9, Hct 43.6, MCV 104.1 H, MCH 33.2 H, MCHC 31.9 L, RDW 13.3, Plt Count 212, MPV 10.1, Neutrophils % (Manual) 59, Band Neuts % (Manual) 6 H, Lymphocytes % (Manual) 18 L, Monocytes % (Manual) 14 H, Eosinophils % (Manual) 3, Neutrophils # (Manual) 8.4 H, Lymphocytes # (Manual) 2.6, Monocytes # (Manual) 2.0 H, Eosinophils # (Manual) 0.4, Platelet Estimate Normal, RBC Morphology Normal 09/03/18 16:30: Sodium 137, Plasma Sodium 139, Potassium 5.7 H D, Chloride 100, Carbon Dioxide 26.1, Anion Gap 16.6 H, BUN 25 H, Creatinine 1.71 H, Est GFR (Non-Af Amer) 31 L D, BUN/Creatinine Ratio 14.6, Random Glucose 230 H D, Calcium 10.4, Calcium Adj for Albumin 10.9 H, Magnesium 2.3, Total Bilirubin 0.6, AST 25, ALT 25, Alkaline Phosphatase 154, Troponin I Less than 0.017, Total Protein 8.6 H, Albumin 3.0 L 09/03/18 16:30: Lactic Acid, Venous 2.9 H* 09/03/18 16:30: Ammonia 29.0 09/03/18 16:46: Urine Color Allyn, Urine Appearance Clear, Urine pH 6.0, Ur Specific Dawn 1.015, Urine Protein 30 H, Urine Glucose (UA) Negative, Urine Ketones Negative, Urine Blood 5 H, Urine Nitrate Negative, Urine Bilirubin 1 H, Urine Ictotest Negative, Prot Sulfosalicylic Acd 2+ H, Urine Urobilinogen Normal, Ur Leukocyte Esterase 75 H, Urine RBC 0-5, Urine WBC 0-5, Ur Epithelial Cells 0-5, Urine Bacteria 2+ H, Hyaline Casts 0-5 H, Urine Mucus Few - 1+ H, Urine Culture Comments Culture to follow 09/03/18 19:30: Lactic Acid, Venous 2.1 H 09/03/18 23:30: Lactic Acid, Venous 2.1 H 09/04/18 06:00: WBC 9.2 D, RBC 3.41 L, Hgb 11.4 L, Hct 35.8 L, MCV 105.0 H, MCH 33.4 H, MCHC 31.8 L, RDW 13.3, Plt Count 152, MPV 10.5, Neutrophils % (Manual) 42, Band Neuts % (Manual) 1, Lymphocytes % (Manual) 45, Monocytes % (Manual) 11 H, Eosinophils % (Manual) 1, Neutrophils # (Manual) 3.9, Lymphocytes # (Manual) 4.1 H, Monocytes # (Manual) 1.0, Eosinophils # (Manual) 0.1, Platelet Estimate Normal, RBC Morphology Normal 09/04/18 06:00: Sodium 139, Plasma Sodium 139, Potassium 4.0 D, Chloride 103, Carbon Dioxide 26.7, Anion Gap 13.3, BUN 29 H, Creatinine 1.45 H, Est GFR (Non- Af Amer) 38 L D, BUN/Creatinine Ratio 20.0, Random Glucose 114 H D, Calcium 9.5 09/04/18 06:00: Lactic Acid, Venous 2.0 09/06/18 06:25: WBC 7.8, RBC 3.27 L, Hgb 10.7 L, Hct 34.1 L, MCV 104.3 H, MCH 32.7 H, MCHC 31.4 L, RDW 13.2, Plt Count 176, MPV 10.1, Immature Gran % (Auto) 1.20 H, Immature Gran # (Auto) 0.09 H, Neutrophils % 39.2 L, Lymphocytes % 40.6, Monocytes % 13.4 H, Eosinophils % 5.0 H, Basophils % 0.6, Nucleated RBC % 0.0, Neutrophils # 3.1, Lymphocytes # 3.16, Monocytes # 1.0, Eosinophils # 0.4, Absolute Basophils 0.1 09/06/18 06:25: Sodium 141, Plasma Sodium 141, Potassium 3.8, Chloride 106, Carbon Dioxide 23.8 L, Anion Gap 15.0 H, BUN 18, Creatinine 1.07, Est GFR (Non- Af Amer) 54 L D, BUN/Creatinine Ratio 16.8, Random Glucose 130 H, Calcium 8.6, Calcium Adj for Albumin 9.6, Total Bilirubin 0.3, AST 33, ALT 28, Alkaline Phosphatase 89, Total Protein 7.2, Albumin 2.4 L Discharge Location: [facility] Disposition: Intermediate Care Facility ICF Condition: Fair Level of Care: ICF Discharge Activity: Activity as tolerated, Non-Weight bearing Discharge Diet: Consistent carbs Referrals: Henrietta Saunders ARNP [Primary Care Provider] - Complete Home Medications List: Complete Home Medication List: Calcium Carbonate [Tums] 500 mg PO TID 09/13/14 Cyanocobalamin (Vitamin B-12) [B-12] 1,000 mcg PO DAILY 09/13/14 Simvastatin [Zocor] 40 mg PO HS 09/13/14 Thiamine HCl [B-1] 100 mg PO DAILY 09/13/14 Pantoprazole Sodium [Protonix] 40 mg PO DAILY 12/04/14 Lisinopril [Zestril] 20 mg PO DAILY #30 tab 05/17/15 0.9 % Sodium Chloride [Nasal Mist] 2 spray NS QID 08/17/15 Furosemide [Lasix] 40 mg PO MOWEFR 08/17/15 Propranolol HCl [Inderal] 20 mg PO 0700,1100,1900 08/17/15 [facility] 08/22/15 Blood Sugar Diagnostic [Test Strips] [facility] 12/28/15 Cyclosporine [Restasis] 1 ea EACHEYE BID 12/28/15 Insulin Aspart [Novolog] See Protocol [facility] 12/28/15 Levothyroxine Sodium [Synthroid] 300 mcg PO DAILY 12/28/15 Aspirin [Marcelo Chewable Aspirin] 81 mg PO DAILY 04/10/17 Gabapentin 300 mg PO 0700,1100,1900 04/10/17 traMADol HCL [Tramadol HCl] 50 mg PO Q8H PRN 04/14/17 Acetaminophen 650 mg PO BID PRN 10/08/17 Lurasidone HCl [Latuda] 60 mg PO BID 10/20/17 Divalproex Sodium [Depakote ER] 1,500 mg PO HS 10/21/17 Docusate Sodium [Colace] 100 mg PO HS 10/25/17 Polyethylene Glycol 3350 [Miralax] 17 gm PO DAILY PRN 11/14/17 acetaminophen 325 mg tablet 650 mg PO QID tab 06/01/18 carbamide peroxide 6.5 % ear drops 10 drp OT DAILY PRN ml 06/01/18 cetirizine 10 mg capsule 10 mg PO DAILY cap 06/01/18 insulin detemir (U-100) 100 unit/mL subcutaneous solution 60 unit SUBCUT BID ml 06/01/18 metformin 500 mg tablet 500 mg PO BID #60 tab 07/07/18 bisacodyl 10 mg rectal suppository 10 mg DC DAILY PRN 07/16/18 Cranberry 500 mg PO DAILY 09/03/18 Diclofenac Sodium [Diclofenac 1% Topical Gel] 1 appl TOPICAL DAILY PRN 09/03/18 Hydrophilic Ointment [Aquaphilic Ointment] 1 appl TOPICAL DAILY PRN 09/03/18 Magnesium Hydroxide [Milk Of Magnesia] 30 ml PO DAILY PRN 09/03/18 Multivitamin [One-Daily Multi-Vitamin] 1 ea PO DAILY 09/03/18 Nystatin [Mycostatin Powder] 1 appl TOPICAL BID PRN 09/03/18 Topiramate [Topamax] 100 mg PO BID 09/03/18 cefuroxime axetil 500 mg tablet 500 mg PO BID 5 Days #10 tab 09/03/18 Amox Tr/Potassium Clavulanate [Augmentin 875-125 Tablet] 875 mg PO BID #14 tab 09/06/18
[2018-09-06 13:11] VITALS: BP 145/63
== END 2018-09-06 13:35 ==
LOC: MS 15:35 → ER 15:35 → MS 19:03
PROVIDERS: ADMIT Family Medicine; ATTEND Family Medicine
CPT/HCPCS: 36415; 70450; 71010; 71045; 80048; 80053; 81001; 82140; 83605; 83735; 84484; 85025; 87040; 87081; 87086; 93005; 96361; 96365; 96366; 96372; 99285; G0378